=== PATIENT | male | born 1960 | race Caucasian/White ===

== ENCOUNTER 2021-05-12 04:55 | Inpatient (IN) | payer OTHER ==
[2021-05-12] MEDS ORDERED: RAPID SEQUENCE INTUBATION KIT NR ONE (05:01)
[2021-05-12] MEDS ORDERED: MIDAZOLAM HCL 2 MG/2 ML SINGLE DOSE VIAL ONE ×2 (05:06→05:21)
[2021-05-12 05:35] LABS: BASO % 0.7 % (0-2.0); EOS % 3.1 % (0-4.5); HEMATOCRIT 42.6 % (35.4-49); HEMOGLOBIN 14.4 GM/dL (11.7-16.9); LYMPH % 46.3 % (8-40); MCH 30.5 pg (25.7-33.7); MCHC 33.7 g/dl (32.0-35.9); MEAN CELL VOLUME 90.6 fl (80-96); MEAN PLT VOLUME 8.9 fl (7.5-11.1); MONO % 7.9 % (3.8-10.2); PLATELET COUNT 337 10^3/uL (134-434); WHITE BLOOD COUNT 17.4 K/mm3 (4.0-10.0)
[2021-05-12 05:49] LABS: INR 3.95 (0.83-1.09); PROTHROMBIN TIME (PATIENT) 46.9 SEC (9.7-13.0)
[2021-05-12 05:52] LABS: ACTIVATED PTT 59.6 SECONDS (25.2-36.5)
[2021-05-12 05:56] LABS: CHLORIDE 100 mmol/L (98-107); SODIUM 139 mmol/L (136-145)
[2021-05-12 05:58] LABS: ANION GAP 24 MMOL/L (8-16); BLOOD UREA NITROGEN 24.8 mg/dL (7-18); CALCIUM 9.2 mg/dL (8.5-10.1); CO2 15 mmol/L (21-32); GLUCOSE,RANDOM 382 mg/dL (74-106)
[2021-05-12 05:59] LABS: ALBUMIN 3.6 g/dl (3.4-5.0)
[2021-05-12 06:02] LABS: CREATININE 2.2 mg/dL (0.55-1.3); SGOT/AST 18 U/L (15-37); SGPT/ALT 25 U/L (13-61)
[2021-05-12 06:04] LABS: ALK PHOS 148 U/L (45-117); BILIRUBIN,TOTAL 0.4 mg/dL (0.2-1); TOT PROT 8.3 g/dl (6.4-8.2)
[2021-05-12] MEDS ORDERED: MIDAZOLAM HCL 5 MG/1 ML Single Dose Vial IVPUSH ONE ×4 (06:08→06:38)
[2021-05-12] MEDS ORDERED: ROCURONIUM BROMIDE 50 MG/5 ML VIAL IV ONE ×2 (06:08→06:37)
[2021-05-12] MEDS ORDERED: MIDAZOLAM IN 0.9 % SOD.CHLORID 1 MG/1 ML PLAST..BAG ONE (06:13)
[2021-05-12] MEDS ORDERED: MIDAZOLAM 100 MG in SODIUM CHLORIDE 100 ML IVPB SCH (06:15)
[2021-05-12] MEDS ORDERED: levETIRAcetam 500 MG/5 ML INJECTION VIAL IVPB ONE ×3 (06:42→06:49)
[2021-05-12] MEDS: MIDAZOLAM IN 0.9 % SOD.CHLORID 100 MG/100 ML PLAST..BAG IVPB SCH ×2 (06:47→10:28)
[2021-05-12 08:24] LABS: METHADONE, UR NEGATIVE (NEGATIVE); URINE AMPHETAMINES NEGATIVE (NEGATIVE)
[2021-05-12 08:25] LABS: OPIATES, URI NEGATIVE (NEGATIVE); PHENCYCLIDINE,URINE NEGATIVE (NEGATIVE)
[2021-05-12 08:31] LABS: URINE APPEARANCE CLEAR; URINE BILIRUBIN NEGATIVE (NEGATIVE); URINE COLOR YELLOW; URINE GLUCOSE (UA) 3+ (NEGATIVE); URINE KETONE NEGATIVE (NEGATIVE)
[2021-05-12 08:32] LABS: URINE LEUK ESTERASE NEGATINE (NEGATIVE); URINE NITRITE NEGATIVE (NEGATIVE); URINE PROTEIN TRACE (NEGATIVE); URINE UROBILINOGEN 0.2 mg/dL (0.2-1.0)
[2021-05-12 08:33] LABS: EPI CELLS 20.1 /uL (0-25.1); HYALINE CASTS 1.77 /uL (0-3.1); URINE BACTERIA 118.3 /uL (0-1359); URINE RBC 5.7 /uL (0-23.9); URINE WBC 10.5 /uL (0-25.8)
[2021-05-12 08:33] LABS: COCAINE, UR NEGATIVE (NEGATIVE); URINE BARBITURATES NEGATIVE (NEGATIVE); URINE BENZODIAZEPINES POSITIVE (NEGATIVE)
[2021-05-12] MEDS: LACTATED RINGERS SOLUTION 1,000 ML/1,000 ML INFUS.BAG IV SCH (14:04)
[2021-05-12] MEDS ORDERED: VANCOMYCIN 1 GRAM (PRE-DOCKED) 1,000 MG/250 ML BAG IVPB ONE (15:00)
[2021-05-12] MEDS ORDERED: DEXTROSE 5%-WATER - 50 ML IVPB ONE (17:47)
[2021-05-12] MEDS ORDERED: PIPERACILLIN/TAZOBACTAM 2.25 GM VIAL IVPB ONE (17:47)
[2021-05-12] MEDS: PIPERACILLIN/TAZOB 2.25 GM 2.25 GM in DEXTROSE 5%-WATER - 50 ML IVPB SCH ×3 (17:49→18:07)
[2021-05-12 19:02] LABS: INR 3.03 (0.83-1.09); PROTHROMBIN TIME (PATIENT) 34.3 SEC (9.7-13.0)
[2021-05-12 19:04] LABS: ACTIVATED PTT 44.1 SECONDS (25.2-36.5)
[2021-05-12] MEDS ORDERED: FENTANYL NS IVPB 500 MCG/100 ML BAG IVPB ONE (19:20)
[2021-05-12] MEDS ORDERED: FENTANYL NS IVPB 500 MCG/100 ML BAG IVPB SCH ×2 (19:30→22:15)
[2021-05-12] MEDS ORDERED: HEPARIN SOD,PORK IN 0.45% NACL 25,000 UNITS/500 ML INFUS.BAG IVPB SCH ×2 (19:45→21:15)
[2021-05-12] MEDS: levETIRAcetam 500 MG/5 ML INJECTION VIAL IVPB SCH (22:40)
[2021-05-12] MEDS: FENTANYL NS IVPB 500 MCG/100 ML BAG IVPB SCH (22:40)
[2021-05-13] MEDS: LACTATED RINGERS SOLUTION 1,000 ML/1,000 ML INFUS.BAG IV SCH ×2 (00:10→12:20)
[2021-05-13 01:41] LABS: EPI CELLS 28 /uL (0-25.1); HYALINE CASTS 3 /uL (0-3.1); URINE APPEARANCE TURBID; URINE BACTERIA 16 /uL (0-1359); URINE BILIRUBIN NEGATIVE (NEGATIVE); URINE COLOR RED; URINE GLUCOSE (UA) 3+ (NEGATIVE); URINE KETONE NEGATIVE (NEGATIVE); URINE LEUK ESTERASE 2+ (NEGATIVE); URINE NITRITE NEGATIVE (NEGATIVE); URINE PROTEIN 2+ (NEGATIVE); URINE RBC 19858 /uL (0-23.9); URINE UROBILINOGEN 0.2 mg/dL (0.2-1.0); URINE WBC 196 /uL (0-25.8)
[2021-05-13 01:54] LABS: INR 2.96 (0.83-1.09); PROTHROMBIN TIME (PATIENT) 33.5 SEC (9.7-13.0)
[2021-05-13] MEDS: PIPERACILLIN/TAZOB 2.25 GM 2.25 GM in DEXTROSE 5%-WATER - 50 ML IVPB SCH ×3 (02:55→18:07)
[2021-05-13] MEDS ORDERED: HEPARIN NA (PORCINE) 5,000 UNITS/ML 1ML VIAL IVPUSH PRN ×3 (03:02→20:26)
[2021-05-13] MEDS ORDERED: HEPARIN SOD,PORK IN 0.45% NACL 25,000 UNITS/500 ML INFUS.BAG IVPB SCH (03:15)
[2021-05-13] MEDS ORDERED: DEXTROSE 5%-WATER - 50 ML IVPB ONE ×4 (03:24→23:28)
[2021-05-13] MEDS ORDERED: PIPERACILLIN/TAZOBACTAM 2.25 GM VIAL IVPB ONE ×4 (03:24→23:27)
[2021-05-13] MEDS: FENTANYL NS IVPB 500 MCG/100 ML BAG IVPB SCH (05:39)
[2021-05-13 06:43] LABS: BASO % 0.5 % (0-2.0); EOS % 0.8 % (0-4.5); HEMOGLOBIN 12.3 GM/dL (11.7-16.9); LYMPH % 19.2 % (8-40); MCH 29.2 pg (25.7-33.7); MCHC 33.2 g/dl (32.0-35.9); MEAN PLT VOLUME 8.8 fl (7.5-11.1); MONO % 9.1 % (3.8-10.2); NEUT % 70.4 % (42.8-82.8); PLATELET COUNT 238 10^3/uL (134-434); WHITE BLOOD COUNT 10.5 K/mm3 (4.0-10.0)
[2021-05-13 06:50] LABS: INR 2.88 (0.83-1.09); PROTHROMBIN TIME (PATIENT) 32.6 SEC (9.7-13.0)
[2021-05-13 07:00] LABS: CALCIUM 8.1 mg/dL (8.5-10.1)
[2021-05-13 07:01] LABS: BLOOD UREA NITROGEN 26.6 mg/dL (7-18)
[2021-05-13 07:04] LABS: CREATININE 2.2 mg/dL (0.55-1.3); PHOSPHOROUS 3.7 mg/dL (2.5-4.9)
[2021-05-13 07:06] LABS: BILIRUBIN,TOTAL 0.5 mg/dL (0.2-1); TOT PROT 6.6 g/dl (6.4-8.2)
[2021-05-13 07:11] LABS: ALBUMIN 2.5 g/dl (3.4-5.0); MAGNESIUM 2.2 mg/dL (1.8-2.4)
[2021-05-13 07:16] LABS: ACTIVATED PTT 179.3 SECONDS (25.2-36.5)
[2021-05-13] MEDS ORDERED: MIDAZOLAM IN 0.9 % SOD.CHLORID 100 MG/100 ML PLAST..BAG IVPB SCH (09:00)
[2021-05-13] MEDS: levETIRAcetam 500 MG/5 ML INJECTION VIAL IVPB SCH ×2 (09:27→21:22)
[2021-05-13] MEDS ORDERED: ALBUTEROL SO4 2.5/IPRATROPIUM 0.5 INH SOL 3 ML VIAL.NEB. NEB PRN (09:45)
[2021-05-13] MEDS ORDERED: DEXAMETHASONE SOD PHOSPHATE 10 MG/1 ML VIAL IVPUSH ONE (09:56)
[2021-05-13] MEDS ORDERED: SUCCINYLCHOLINE CHLORIDE 200 MG/10 ML SYRINGE ONE (10:03)
[2021-05-13] MEDS ORDERED: PROPOFOL 1,000,000 MCG/100 ML VIAL ONE (10:04)
[2021-05-13] MEDS ORDERED: RACEPINEPHRINE IH SOL 2.25% 11.25 MG/0.5 ML VIAL IH ONE (10:07)
[2021-05-13] MEDS ORDERED: RACEPINEPHRINE IH SOL 2.25% 11.25 MG/0.5 ML VIAL NEB ONE (10:07)
[2021-05-13] MEDS: INSULIN SLIDING SCALE (NOVOLOG) 1 VIAL SQ SCH ×3 (12:28→21:54)
[2021-05-13] MEDS ORDERED: WARFARIN NA 3 MG TABLET PO SCH (16:00)
[2021-05-13] MEDS: WARFARIN NA 3 MG TABLET PO SCH (18:07)
[2021-05-13] MEDS: DEXAMETHASONE SOD PHOSPHATE 10 MG/1 ML VIAL IVPUSH SCH (18:07)
[2021-05-13] MEDS: LORazepam 2 MG/ML SDV VIAL IVPUSH PRN ×2 (18:34→21:09)
[2021-05-13] MEDS: HEPARIN SOD,PORK IN 0.45% NACL 25,000 UNITS/500 ML INFUS.BAG IVPB SCH (20:00)
[2021-05-13 20:38] LABS: EPI CELLS >36 /uL (0-25.1); HYALINE CASTS 2 /uL (0-3.1); URINE APPEARANCE TURBID; URINE BACTERIA 7 /uL (0-1359); URINE BILIRUBIN 1+ (NEGATIVE); URINE COLOR RED; URINE GLUCOSE (UA) 3+ (NEGATIVE); URINE KETONE NEGATIVE (NEGATIVE); URINE LEUK ESTERASE 2+ (NEGATIVE); URINE NITRITE NEGATIVE (NEGATIVE); URINE PROTEIN 2+ (NEGATIVE); URINE UROBILINOGEN 0.2 mg/dL (0.2-1.0); URINE WBC 358 /uL (0-25.8)
[2021-05-13 21:53] LABS: ARTERIAL BLD GAS O2 SATURATION 95.8 % (95-98); ARTERIAL BLOOD GAS BASE EXCESS -1.3 mmol/L (-2-2); ARTERIAL BLOOD GAS PO2 78.9 mmHg (80-100); ARTERIAL BLOOD GAS pH 7.406 (7.350-7.450)
[2021-05-13 21:55] LABS: URINE RBC 21732 /uL (0-23.9); YEAST NONE SEEN (NEGATIVE)
[2021-05-13 21:56] LABS: ALLENS TEST POSITIVE
[2021-05-13] MEDS ORDERED: METOPROLOL TARTRATE 5 MG/5 ML VIAL IVPUSH ONE (23:01)
[2021-05-13] MEDS ORDERED: HALOPERIDOL LACTATE 5 MG/ML IM ONE (23:05)
[2021-05-14] MEDS ORDERED: LABETALOL HCL 5 MG/1 ML (100MG/20 ML VIAL) IVPUSH ONE ×2 (00:35→06:58)
[2021-05-14] MEDS ORDERED: LABETALOL HCL 5 MG/1 ML (100MG/20 ML VIAL) ONE (00:36)
[2021-05-14] MEDS ORDERED: hydrALAZINE HCL 20 MG/ML VIAL IVPUSH ONE (01:41)
[2021-05-14] MEDS: PIPERACILLIN/TAZOB 2.25 GM 2.25 GM in DEXTROSE 5%-WATER - 50 ML IVPB SCH ×3 (01:45→18:12)
[2021-05-14] MEDS: DEXAMETHASONE SOD PHOSPHATE 10 MG/1 ML VIAL IVPUSH SCH (02:18)
[2021-05-14] MEDS: HEPARIN SOD,PORK IN 0.45% NACL 25,000 UNITS/500 ML INFUS.BAG IVPB SCH ×2 (03:50→20:31)
[2021-05-14] MEDS: INSULIN SLIDING SCALE (NOVOLOG) 1 VIAL SQ SCH ×5 (06:48→21:33)
[2021-05-14 07:06] LABS: HEMATOCRIT 38.5 % (35.4-49); HEMOGLOBIN 12.9 GM/dL (11.7-16.9); MCH 29.5 pg (25.7-33.7); MCHC 33.6 g/dl (32.0-35.9); MEAN CELL VOLUME 87.7 fl (80-96); MEAN PLT VOLUME 9.5 fl (7.5-11.1); PLATELET COUNT 257 10^3/uL (134-434); RBC 4.39 M/mm3 (4.00-5.60); RDW 13.1 % (11.9-15.9); WHITE BLOOD COUNT 18.2 K/mm3 (4.0-10.0)
[2021-05-14 07:16] LABS: INR 1.96 (0.83-1.09); PROTHROMBIN TIME (PATIENT) 23.1 SEC (9.7-13.0)
[2021-05-14 07:19] LABS: ACTIVATED PTT 34.1 SECONDS (25.2-36.5)
[2021-05-14 07:34] LABS: BLOOD UREA NITROGEN 31.4 mg/dL (7-18); CALCIUM 8.6 mg/dL (8.5-10.1)
[2021-05-14 07:35] LABS: MAGNESIUM 1.7 mg/dL (1.8-2.4)
[2021-05-14 07:38] LABS: CREATININE 2.1 mg/dL (0.55-1.3); PHOSPHOROUS 2.8 mg/dL (2.5-4.9)
[2021-05-14 07:39] LABS: BILIRUBIN,TOTAL 0.5 mg/dL (0.2-1); TOT PROT 7.6 g/dl (6.4-8.2)
[2021-05-14] MEDS ORDERED: MAGNESIUM SULF 50% (8.12 MEQ/2 ML-1 GM VIAL) IVPB ONE (08:30)
[2021-05-14] MEDS ORDERED: DEXTROSE 5%-WATER - 50 ML IVPB ONE ×2 (09:03→18:36)
[2021-05-14] MEDS ORDERED: PIPERACILLIN/TAZOBACTAM 2.25 GM VIAL IVPB ONE ×2 (09:03→18:36)
[2021-05-14] MEDS: levETIRAcetam 500 MG/5 ML INJECTION VIAL IVPB SCH ×2 (10:11→21:32)
[2021-05-14] MEDS: HEPARIN NA (PORCINE) 5,000 UNITS/ML 1ML VIAL IVPUSH PRN ×2 (10:12→21:51)
[2021-05-14] MEDS: LACTATED RINGERS SOLUTION 1,000 ML/1,000 ML INFUS.BAG IV SCH ×2 (10:12→16:23)
[2021-05-14 10:24] LABS: ANISOCYTOSIS 1+; MACROCYTOSIS 0; OVALOCYTE 1+; PLATELET ESTIMATE NORMAL
[2021-05-14 15:02] VITALS: BMI 30.2
[2021-05-14] MEDS: NICARDIPINE 25 MG in DEXTROSE 5%-WATER - 240 ML IVPB SCH (17:30)
[2021-05-14] MEDS: WARFARIN NA 3 MG TABLET PO SCH (18:11)
[2021-05-15] MEDS: NICARDIPINE 25 MG in DEXTROSE 5%-WATER - 240 ML IVPB SCH (00:38)
[2021-05-15] MEDS ORDERED: PIPERACILLIN/TAZOBACTAM 2.25 GM VIAL IVPB ONE ×2 (01:10→09:51)
[2021-05-15] MEDS ORDERED: DEXTROSE 5%-WATER - 50 ML IVPB ONE ×2 (01:10→09:52)
[2021-05-15] MEDS: PIPERACILLIN/TAZOB 2.25 GM 2.25 GM in DEXTROSE 5%-WATER - 50 ML IVPB SCH ×3 (01:13→19:11)
[2021-05-15] MEDS: LACTATED RINGERS SOLUTION 1,000 ML/1,000 ML INFUS.BAG IV SCH ×2 (01:16→19:11)
[2021-05-15] MEDS ORDERED: HALOPERIDOL LACTATE 5 MG/ML IM ONE (03:05)
[2021-05-15] MEDS ORDERED: morphine SULFATE 4 MG/ML VIAL IVPUSH ONE (04:01)
[2021-05-15] MEDS: INSULIN SLIDING SCALE (NOVOLOG) 1 VIAL SQ SCH ×4 (06:43→21:10)
[2021-05-15 07:37] LABS: BASO % 0.1 % (0-2.0); HEMATOCRIT 38.2 % (35.4-49); HEMOGLOBIN 12.8 GM/dL (11.7-16.9); LYMPH % 10.9 % (8-40); MCH 29.1 pg (25.7-33.7); MCHC 33.5 g/dl (32.0-35.9); MEAN CELL VOLUME 86.8 fl (80-96); MEAN PLT VOLUME 8.8 fl (7.5-11.1); MONO % 6.2 % (3.8-10.2); NEUT % 82.8 % (42.8-82.8); PLATELET COUNT 300 10^3/uL (134-434); RDW 12.9 % (11.9-15.9); WHITE BLOOD COUNT 18.9 K/mm3 (4.0-10.0)
[2021-05-15 07:46] LABS: INR 1.68 (0.83-1.09); PROTHROMBIN TIME (PATIENT) 18.9 SEC (9.7-13.0)
[2021-05-15 07:49] LABS: ACTIVATED PTT 28.2 SECONDS (25.2-36.5)
[2021-05-15 08:08] LABS: ALBUMIN 2.9 g/dl (3.4-5.0); CALCIUM 8.6 mg/dL (8.5-10.1)
[2021-05-15 08:09] LABS: BLOOD UREA NITROGEN 30.9 mg/dL (7-18)
[2021-05-15 08:11] LABS: CREATININE 1.6 mg/dL (0.55-1.3)
[2021-05-15 08:12] LABS: BILIRUBIN,TOTAL 0.6 mg/dL (0.2-1); PHOSPHOROUS 2.7 mg/dL (2.5-4.9)
[2021-05-15 08:13] LABS: TOT PROT 7.3 g/dl (6.4-8.2)
[2021-05-15] MEDS: levETIRAcetam 500 MG/5 ML INJECTION VIAL IVPB SCH (14:00)
[2021-05-15] MEDS: ASPIRIN COATED 81 MG TABLET.EC PO SCH (14:38)
[2021-05-15] MEDS: NIFEdipine E.R. 30 MG TABLET PO SCH (14:38)
[2021-05-15] MEDS ORDERED: PT OWN MED DRAWER 7, Y5N ONE (18:35)
[2021-05-15] MEDS: WARFARIN NA 3 MG TABLET PO SCH (18:49)
[2021-05-15] MEDS: HEPARIN SOD,PORK IN 0.45% NACL 25,000 UNITS/500 ML INFUS.BAG IVPB SCH (21:00)
[2021-05-15] MEDS: levETIRAcetam 500 MG TABLET (FP) PO SCH (21:10)
[2021-05-16] MEDS: PIPERACILLIN/TAZOB 2.25 GM 2.25 GM in DEXTROSE 5%-WATER - 50 ML IVPB SCH ×2 (01:31→09:47)
[2021-05-16] MEDS: INSULIN SLIDING SCALE (NOVOLOG) 1 VIAL SQ SCH ×4 (06:46→21:05)
[2021-05-16] MEDS ORDERED: PIPERACILLIN/TAZOBACTAM 2.25 GM VIAL IVPB ONE (09:07)
[2021-05-16] MEDS ORDERED: DEXTROSE 5%-WATER - 50 ML IVPB ONE (09:08)
[2021-05-16] MEDS: ASPIRIN COATED 81 MG TABLET.EC PO SCH (09:30)
[2021-05-16] MEDS: levETIRAcetam 500 MG TABLET (FP) PO SCH ×2 (09:30→21:04)
[2021-05-16] MEDS: NIFEdipine E.R. 30 MG TABLET PO SCH (09:30)
[2021-05-16] MEDS: LACTATED RINGERS SOLUTION 1,000 ML/1,000 ML INFUS.BAG IV SCH (11:26)
[2021-05-16 11:59] LABS: HEMATOCRIT 40.7 % (35.4-49); HEMOGLOBIN 13.7 GM/dL (11.7-16.9); MCH 29.4 pg (25.7-33.7); MCHC 33.6 g/dl (32.0-35.9); MEAN CELL VOLUME 87.4 fl (80-96); MEAN PLT VOLUME 8.3 fl (7.5-11.1); PLATELET COUNT 237 10^3/uL (134-434); RBC 4.65 M/mm3 (4.00-5.60); RDW 12.7 % (11.9-15.9); WHITE BLOOD COUNT 12.3 K/mm3 (4.0-10.0)
[2021-05-16 12:01] LABS: BASO % 0.5 % (0-2.0); EOS % 1.1 % (0-4.5); HEMATOCRIT 40.5 % (35.4-49); HEMOGLOBIN 13.8 GM/dL (11.7-16.9); LYMPH % 24.1 % (8-40); MCH 29.5 pg (25.7-33.7); MEAN CELL VOLUME 86.7 fl (80-96); MEAN PLT VOLUME 8.6 fl (7.5-11.1); MONO % 7.1 % (3.8-10.2); NEUT % 67.2 % (42.8-82.8); PLATELET COUNT 286 10^3/uL (134-434); RBC 4.67 M/mm3 (4.00-5.60)
[2021-05-16 12:08] LABS: INR 1.82 (0.83-1.09); PROTHROMBIN TIME (PATIENT) 20.5 SEC (9.7-13.0)
[2021-05-16 12:12] LABS: ACTIVATED PTT 29.6 SECONDS (25.2-36.5)
[2021-05-16 12:19] LABS: ALBUMIN 2.9 g/dl (3.4-5.0); BLOOD UREA NITROGEN 33.1 mg/dL (7-18); CALCIUM 8.8 mg/dL (8.5-10.1); MAGNESIUM 2.1 mg/dL (1.8-2.4)
[2021-05-16 12:22] LABS: CREATININE 1.6 mg/dL (0.55-1.3)
[2021-05-16 12:24] LABS: BILIRUBIN,TOTAL 0.6 mg/dL (0.2-1); TOT PROT 7.4 g/dl (6.4-8.2)
[2021-05-16] MEDS: AMOX TR/POT CLAV 875MG/125MG TABLETS (FP) PO SCH (17:20)
[2021-05-16] MEDS ORDERED: WARFARIN NA 5 MG TABLET PO SCH ×2 (18:00→20:00)
[2021-05-16] MEDS ORDERED: HEPARIN NA (PORCINE) 5,000 UNITS/ML 1ML VIAL IVPUSH PRN ×2 (18:26)
[2021-05-16] MEDS ORDERED: HEPARIN SOD,PORK IN 0.45% NACL 25,000 UNITS/500 ML INFUS.BAG IVPB SCH (18:26)
[2021-05-16] MEDS ORDERED: ALBUTEROL SO4 2.5/IPRATROPIUM 0.5 INH SOL 3 ML VIAL.NEB. NEB PRN (18:26)
[2021-05-16] MEDS ORDERED: WARFARIN NA 3 MG TABLET PO SCH (18:30)
[2021-05-16] MEDS: WARFARIN NA 3 MG TABLET PO SCH (18:40)
[2021-05-16] MEDS ORDERED: INSULIN (NOVOLOG) ASPART 100 UNITS/ML 10ML VIAL ONE (20:27)
[2021-05-16] MEDS: ENOXAPARIN NA (PORCINE) 100 MG/1 ML DISP.SYRIN SQ SCH (21:04)
[2021-05-16] MEDS ORDERED: ENOXAPARIN NA (PORCINE) 100 MG/1 ML DISP.SYRIN SQ SCH (22:00)
[2021-05-17] MEDS: INSULIN SLIDING SCALE (NOVOLOG) 1 VIAL SQ SCH ×4 (06:43→21:00)
[2021-05-17] MEDS: AMOX TR/POT CLAV 875MG/125MG TABLETS (FP) PO SCH ×2 (09:28→17:26)
[2021-05-17] MEDS: levETIRAcetam 500 MG TABLET (FP) PO SCH ×2 (09:28→21:00)
[2021-05-17] MEDS: NIFEdipine E.R. 30 MG TABLET PO SCH (09:28)
[2021-05-17] MEDS: ASPIRIN COATED 81 MG TABLET.EC PO SCH (09:28)
[2021-05-17] MEDS: ENOXAPARIN NA (PORCINE) 100 MG/1 ML DISP.SYRIN SQ SCH (09:29)
[2021-05-17] MEDS: METOPROLOL TARTRATE 25 MG TABLET (FP) PO SCH (09:29)
[2021-05-17] MEDS ORDERED: INSULIN (NOVOLOG) ASPART 100 UNITS/ML 10ML VIAL ONE (11:39)
[2021-05-17 12:46] LABS: HEMATOCRIT 39.7 % (35.4-49); HEMOGLOBIN 13.6 GM/dL (11.7-16.9); MCH 29.7 pg (25.7-33.7); MCHC 34.2 g/dl (32.0-35.9); PLATELET COUNT 324 10^3/uL (134-434); RBC 4.56 M/mm3 (4.00-5.60); RDW 12.9 % (11.9-15.9)
[2021-05-17 12:56] LABS: INR 2.56 (0.83-1.09); PROTHROMBIN TIME (PATIENT) 30.2 SEC (9.7-13.0)
[2021-05-17] MEDS ORDERED: WARFARIN NA 3 MG TABLET PO SCH (18:00)
[2021-05-18] MEDS: INSULIN SLIDING SCALE (NOVOLOG) 1 VIAL SQ SCH ×2 (06:18→11:48)
[2021-05-18] MEDS: AMOX TR/POT CLAV 875MG/125MG TABLETS (FP) PO SCH (07:03)
[2021-05-18 08:16] LABS: BASO % 0.8 % (0-2.0); EOS % 3.3 % (0-4.5); HEMATOCRIT 39.5 % (35.4-49); HEMOGLOBIN 13.4 GM/dL (11.7-16.9); LYMPH % 27.2 % (8-40); MCH 29.4 pg (25.7-33.7); MEAN CELL VOLUME 86.2 fl (80-96); MEAN PLT VOLUME 8.5 fl (7.5-11.1); MONO % 7.4 % (3.8-10.2); NEUT % 61.3 % (42.8-82.8); PLATELET COUNT 308 10^3/uL (134-434); RBC 4.58 M/mm3 (4.00-5.60); RDW 12.9 % (11.9-15.9); WHITE BLOOD COUNT 10.4 K/mm3 (4.0-10.0)
[2021-05-18] MEDS ORDERED: PT OWN MED DRAWER 7, Y5N ONE (08:34)
[2021-05-18 08:47] LABS: CALCIUM 9.5 mg/dL (8.5-10.1)
[2021-05-18 08:48] LABS: ALBUMIN 2.7 g/dl (3.4-5.0); BLOOD UREA NITROGEN 32.5 mg/dL (7-18); MAGNESIUM 1.7 mg/dL (1.8-2.4)
[2021-05-18 08:51] LABS: BILIRUBIN,TOTAL 0.6 mg/dL (0.2-1); CREATININE 1.5 mg/dL (0.55-1.3); TOT PROT 7.1 g/dl (6.4-8.2)
[2021-05-18] MEDS: METOPROLOL TARTRATE 25 MG TABLET (FP) PO SCH (09:04)
[2021-05-18] MEDS: ASPIRIN COATED 81 MG TABLET.EC PO SCH (09:05)
[2021-05-18] MEDS: NIFEdipine E.R. 30 MG TABLET PO SCH (09:05)
[2021-05-18] MEDS: levETIRAcetam 500 MG TABLET (FP) PO SCH (09:05)
[2021-05-18] MEDS ORDERED: MAGNESIUM OXIDE 400 MG TABLET (FP) PO ONE (11:15)
[2021-05-18 11:52] LABS: INR 3.02 (0.83-1.09); PROTHROMBIN TIME (PATIENT) 34.2 SEC (9.7-13.0)
[2021-05-18 15:31] VITALS: BP 136/92; PULSE 73; TEMP 98.2
== END 2021-05-18 15:38 | disposition home or self-care (01) | DRG 53 ==
LOC: JER 04:55 → JERBED 05:49 → JICU 10:16 → J8W 05-16 18:07
PROVIDERS: ADMIT Internal Medicine Pulmonary Disease; ATTEND Nurse Practitioner Acute Care
PROC: 0BH17EZ Insertion of Endotracheal Airway into Trachea, Via Natural or Artificial Opening (ICD-10-PCS; principal; 2021-05-12)
PROC: 5A1945Z Respiratory Ventilation, 24-96 Consecutive Hours (ICD-10-PCS; 2021-05-12)
DX: G40.909 Epilepsy, unspecified, not intractable, without status epilepticus (principal); J96.00 Acute respiratory failure, unspecified whether with hypoxia or hypercapnia; J69.0 Pneumonitis due to inhalation of food and vomit; I10 Essential (primary) hypertension; E11.9 Type 2 diabetes mellitus without complications; I25.10 Atherosclerotic heart disease of native coronary artery without angina pectoris; E11.65 Type 2 diabetes mellitus with hyperglycemia; K74.60 Unspecified cirrhosis of liver; D72.829 Elevated white blood cell count, unspecified; R31.0 Gross hematuria; E11.40 Type 2 diabetes mellitus with diabetic neuropathy, unspecified; Z95.2 Presence of prosthetic heart valve; N17.9 Acute kidney failure, unspecified; N20.0 Calculus of kidney; R31.9 Hematuria, unspecified; J98.11 Atelectasis; R41.82 Altered mental status, unspecified; W06.XXXA Fall from bed, initial encounter; Y92.230 Patient room in hospital as the place of occurrence of the external cause; Z86.19 Personal history of other infectious and parasitic diseases
CPT/HCPCS: 36415; 36600; 70450-TC; 71045-TC-FY; 71260-TC; 72125-TC; 74177-TC; 76775-TC; 80053; 80307; 81003; 82010; 82140; 82550; 82553; 82803; 82962; 83605; 83735; 84100; 84484; 85025; 85027; 85610; 85730; 86038; 86160; 86850; 86870; 86900; 86901; 86902; 87040; 87086; 87522; 93005; 93010; 93306-TC; 94002; 94660; 97116-GP; 99291; 99292; C9803; G0480; J1100; J1644; U0003; U0005

== ENCOUNTER 2021-06-12 10:26 | Observation (INO) | payer OTHER ==
[2021-06-12 10:43] VITALS: BMI 32.1
[2021-06-12 14:09] LABS: VENOUS BASE EXCESS -1.5 mmol/L (-2-2); VENOUS O2 SATURATION 62.3 % (70-80); VENOUS PCO2 45.2 mmHg (38-52); VENOUS PH 7.348 (7.310-7.410)
[2021-06-12 14:11] LABS: BASO % 1.2 % (0-2.0); HEMATOCRIT 35.8 % (35.4-49); HEMOGLOBIN 12.2 GM/dL (11.7-16.9); LYMPH % 33.6 % (8-40); MCH 29.3 pg (25.7-33.7); MCHC 34.2 g/dl (32.0-35.9); MEAN CELL VOLUME 85.9 fl (80-96); MEAN PLT VOLUME 9.4 fl (7.5-11.1); MONO % 7.6 % (3.8-10.2); NEUT % 54.6 % (42.8-82.8); PLATELET COUNT 251 10^3/uL (134-434); RBC 4.17 M/mm3 (4.00-5.60); WHITE BLOOD COUNT 8.4 K/mm3 (4.0-10.0)
[2021-06-12 14:19] LABS: PROTHROMBIN TIME (PATIENT) 50.9 SEC (9.7-13.0)
[2021-06-12 14:28] LABS: CHLORIDE 97 mmol/L (98-107); SODIUM 131 mmol/L (136-145)
[2021-06-12 14:30] LABS: CALCIUM 9.1 mg/dL (8.5-10.1)
[2021-06-12 14:31] LABS: ALBUMIN 3.7 g/dl (3.4-5.0); ANION GAP 7 MMOL/L (8-16); BLOOD UREA NITROGEN 32.2 mg/dL (7-18); CO2 28 mmol/L (21-32); INR 4.48 (0.83-1.09)
[2021-06-12 14:33] LABS: CREATININE 2.4 mg/dL (0.55-1.3)
[2021-06-12 14:34] LABS: SGOT/AST 13 U/L (15-37); SGPT/ALT 24 U/L (13-61)
[2021-06-12 14:35] LABS: BILIRUBIN,TOTAL 0.3 mg/dL (0.2-1); TOT PROT 7.5 g/dl (6.4-8.2)
[2021-06-12 14:36] LABS: ALK PHOS 140 U/L (45-117)
[2021-06-12 14:50] LABS: GLUCOSE,RANDOM 516 mg/dL (74-106)
[2021-06-12] MEDS ORDERED: SODIUM CHLORIDE 1,000 ML IV ONE (16:09)
[2021-06-12] MEDS: INSULIN SLIDING SCALE (NOVOLOG) 1 VIAL SQ SCH ×2 (17:00→21:27)
[2021-06-12] MEDS: SODIUM CHLORIDE 1,000 ML IV SCH (18:13)
[2021-06-12 18:17] LABS: EPI CELLS 6 /uL (0-25.1); HYALINE CASTS 0 /uL (0-3.1); URINE APPEARANCE CLEAR; URINE BACTERIA 123 /uL (0-1359); URINE BILIRUBIN NEGATIVE (NEGATIVE); URINE COLOR YELLOW; URINE GLUCOSE (UA) 3+ (NEGATIVE); URINE KETONE NEGATIVE (NEGATIVE); URINE LEUK ESTERASE TRACE (NEGATIVE); URINE NITRITE NEGATIVE (NEGATIVE); URINE PROTEIN 1+ (NEGATIVE); URINE RBC 8 /uL (0-23.9); URINE UROBILINOGEN 0.2 mg/dL (0.2-1.0); URINE WBC 89 /uL (0-25.8)
[2021-06-12] MEDS: levETIRAcetam 500 MG TABLET (FP) PO SCH (21:27)
[2021-06-12] MEDS: ATORVASTATIN CA 40 MG TABLET (FP) PO SCH (21:27)
[2021-06-12] MEDS: INSULIN (LEVEMIR) 100 UNITS/ML UNITS SQ SCH (21:27)
[2021-06-13] MEDS: INSULIN SLIDING SCALE (NOVOLOG) 1 VIAL SQ SCH ×4 (06:05→21:19)
[2021-06-13] MEDS: SODIUM CHLORIDE 1,000 ML IV SCH ×2 (06:51→18:36)
[2021-06-13] MEDS: INSULIN (LEVEMIR) 100 UNITS/ML UNITS SQ SCH (09:10)
[2021-06-13] MEDS: METOPROLOL TARTRATE 25 MG TABLET (FP) PO SCH (09:10)
[2021-06-13] MEDS: NIFEdipine E.R. 30 MG TABLET PO SCH (09:10)
[2021-06-13] MEDS: levETIRAcetam 500 MG TABLET (FP) PO SCH ×2 (09:10→21:20)
[2021-06-13 10:48] LABS: HEMATOCRIT 32.2 % (35.4-49); HEMOGLOBIN 11.4 GM/dL (11.7-16.9); MCH 30.1 pg (25.7-33.7); MCHC 35.4 g/dl (32.0-35.9); MEAN CELL VOLUME 85.1 fl (80-96); MEAN PLT VOLUME 9.1 fl (7.5-11.1); PLATELET COUNT 217 10^3/uL (134-434); RBC 3.78 M/mm3 (4.00-5.60); WHITE BLOOD COUNT 6.9 K/mm3 (4.0-10.0)
[2021-06-13 10:53] LABS: INR 3.26 (0.83-1.09); PROTHROMBIN TIME (PATIENT) 38.6 SEC (9.7-13.0)
[2021-06-13 11:15] LABS: BLOOD UREA NITROGEN 29.2 mg/dL (7-18); CALCIUM 8.3 mg/dL (8.5-10.1)
[2021-06-13 11:16] LABS: MAGNESIUM 1.9 mg/dL (1.8-2.4)
[2021-06-13 11:19] LABS: CREATININE 1.7 mg/dL (0.55-1.3); PHOSPHOROUS 2.4 mg/dL (2.5-4.9)
[2021-06-13] MEDS ORDERED: WARFARIN NA 2.5 MG TABLET PO ONE (18:00)
[2021-06-13] MEDS: ATORVASTATIN CA 40 MG TABLET (FP) PO SCH (21:19)
[2021-06-14] MEDS: INSULIN SLIDING SCALE (NOVOLOG) 1 VIAL SQ SCH ×4 (06:39→21:20)
[2021-06-14] MEDS: INSULIN (LEVEMIR) 100 UNITS/ML UNITS SQ SCH (06:39)
[2021-06-14] MEDS: SODIUM CHLORIDE 1,000 ML IV SCH ×2 (08:56→18:44)
[2021-06-14] MEDS: NIFEdipine E.R. 30 MG TABLET PO SCH (09:03)
[2021-06-14] MEDS: levETIRAcetam 500 MG TABLET (FP) PO SCH ×2 (09:03→21:21)
[2021-06-14] MEDS: METOPROLOL TARTRATE 25 MG TABLET (FP) PO SCH (09:03)
[2021-06-14 09:48] LABS: INR 2.7 (0.83-1.09); PROTHROMBIN TIME (PATIENT) 30.5 SEC (9.7-13.0)
[2021-06-14 10:18] LABS: BLOOD UREA NITROGEN 24.8 mg/dL (7-18); CALCIUM 8.4 mg/dL (8.5-10.1)
[2021-06-14 10:22] LABS: CREATININE 1.4 mg/dL (0.55-1.3)
[2021-06-14 10:23] LABS: BILIRUBIN,TOTAL 0.6 mg/dL (0.2-1); TOT PROT 6.3 g/dl (6.4-8.2)
[2021-06-14 10:26] LABS: ALBUMIN 2.9 g/dl (3.4-5.0)
[2021-06-14] MEDS ORDERED: NIFEdipine E.R. 30 MG TABLET PO ONE (10:32)
[2021-06-14] MEDS ORDERED: INSULIN (LEVEMIR) 100 UNITS/ML UNITS SQ SCH (11:15)
[2021-06-14] MEDS ORDERED: WARFARIN NA 3 MG TABLET PO SCH (18:00)
[2021-06-14] MEDS ORDERED: WARFARIN NA 2.5 MG TABLET PO SCH (18:00)
[2021-06-14] MEDS ORDERED: INSULIN (NOVOLOG) ASPART 100 UNITS/ML 10ML VIAL SQ ONE (18:24)
[2021-06-14] MEDS: ATORVASTATIN CA 40 MG TABLET (FP) PO SCH (21:20)
[2021-06-15] MEDS: INSULIN (LEVEMIR) 100 UNITS/ML UNITS SQ SCH (06:21)
[2021-06-15] MEDS: INSULIN SLIDING SCALE (NOVOLOG) 1 VIAL SQ SCH ×3 (06:22→18:24)
[2021-06-15 08:47] LABS: BASO % 1.1 % (0-2.0); EOS % 3.3 % (0-4.5); HEMATOCRIT 34.1 % (35.4-49); HEMOGLOBIN 11.6 GM/dL (11.7-16.9); MCH 29.2 pg (25.7-33.7); MCHC 34.1 g/dl (32.0-35.9); MEAN CELL VOLUME 85.8 fl (80-96); MEAN PLT VOLUME 9.1 fl (7.5-11.1); MONO % 5.6 % (3.8-10.2); PLATELET COUNT 230 10^3/uL (134-434); RBC 3.97 M/mm3 (4.00-5.60); RDW 13.3 % (11.9-15.9); WHITE BLOOD COUNT 6.6 K/mm3 (4.0-10.0)
[2021-06-15 09:03] LABS: ALBUMIN 3.2 g/dl (3.4-5.0); BLOOD UREA NITROGEN 19.6 mg/dL (7-18); CALCIUM 8.9 mg/dL (8.5-10.1); MAGNESIUM 1.9 mg/dL (1.8-2.4)
[2021-06-15 09:05] LABS: CREATININE 1.2 mg/dL (0.55-1.3)
[2021-06-15 09:07] LABS: PHOSPHOROUS 2.6 mg/dL (2.5-4.9)
[2021-06-15 09:08] LABS: BILIRUBIN,TOTAL 0.3 mg/dL (0.2-1); TOT PROT 6.7 g/dl (6.4-8.2)
[2021-06-15 09:14] LABS: INR 2.26 (0.83-1.09); PROTHROMBIN TIME (PATIENT) 26.7 SEC (9.7-13.0)
[2021-06-15] MEDS ORDERED: INSULIN (LEVEMIR) 100 UNITS/ML UNITS SQ SCH (10:04)
[2021-06-15] MEDS ORDERED: INSULIN (LEVEMIR) 100 UNITS/ML UNITS SQ ONE (10:15)
[2021-06-15] MEDS: levETIRAcetam 500 MG TABLET (FP) PO SCH (10:39)
[2021-06-15] MEDS: NIFEdipine E.R. 30 MG TABLET PO SCH (10:39)
[2021-06-15] MEDS: METOPROLOL TARTRATE 25 MG TABLET (FP) PO SCH (10:39)
[2021-06-15 18:03] VITALS: BP 142/88; PULSE 104; TEMP 98.9
== END 2021-06-15 18:54 | disposition home health service (06) ==
LOC: JER 10:26 → JERBED 16:02 → INTOOBSV 16:02 → UNDOADMOB 16:02 → JERBED 21:07 → J5S 21:07 → JERBED 06-15 11:17 → J5S 06-15 11:17
PROVIDERS: ADMIT Internal Medicine; ATTEND Internal Medicine
PROC: 3E013VG Introduction of Insulin into Subcutaneous Tissue, Percutaneous Approach (ICD-10-PCS; principal; 2021-06-15)
PROC: 3E0337Z Introduction of Electrolytic and Water Balance Substance into Peripheral Vein, Percutaneous Approach (ICD-10-PCS; 2021-06-15)
DX: I25.10 Atherosclerotic heart disease of native coronary artery without angina pectoris (principal); I11.9 Hypertensive heart disease without heart failure; Z95.2 Presence of prosthetic heart valve; Z79.01 Long term (current) use of anticoagulants; R79.89 Other specified abnormal findings of blood chemistry; E11.65 Type 2 diabetes mellitus with hyperglycemia; E11.22 Type 2 diabetes mellitus with diabetic chronic kidney disease; N18.9 Chronic kidney disease, unspecified; E66.9 Obesity, unspecified; Z68.32 Body mass index [BMI] 32.0-32.9, adult; N17.9 Acute kidney failure, unspecified
CPT/HCPCS: 36415; 71046-TC-FY; 76775-TC; 80048; 80053; 81003; 82570; 82803; 82962; 83036; 83735; 84100; 84156; 84300; 85025; 85027; 85610; 87077; 87086; 93005; 93010; 96360; 96361; 96372; 99285-25; C9803; G0378; U0003; U0005

== ENCOUNTER 2023-01-27 12:35 | Inpatient (IN) | payer OTHER ==
[2023-01-27] MEDS ORDERED: ACETAMINOPHEN 325 MG TABLET (FP) PO PRN (17:05)
[2023-01-27 19:03] LABS: HEMATOCRIT 30.4 % (35.4-49); MCH 26.1 pg (25.7-33.7); MEAN CELL VOLUME 79.3 fl (80-96); MEAN PLT VOLUME 7.6 fl (7.5-11.1); PLATELET COUNT 317 10^3/uL (134-434); RBC 3.83 M/mm3 (4.00-5.60); RDW 14.9 % (11.9-15.9); RETICULOCYTES 1.75 % (0.5-1.5); WHITE BLOOD COUNT 10.9 K/mm3 (4.0-10.0)
[2023-01-27] MEDS ORDERED: IRON SUCROSE INJECTION 300 MG in SODIUM CHLORIDE 235 ML IVPB ONE (20:30)
[2023-01-27 20:32] LABS: COCAINE, UR NEGATIVE (NEGATIVE)
[2023-01-27 20:33] LABS: METHADONE, UR NEGATIVE (NEGATIVE); PHENCYCLIDINE,URINE NEGATIVE (NEGATIVE); URINE BARBITURATES NEGATIVE (NEGATIVE)
[2023-01-27 21:14] LABS: OPIATES, URI NEGATIVE (NEGATIVE); URINE AMPHETAMINES NEGATIVE (NEGATIVE); URINE BENZODIAZEPINES NEGATIVE (NEGATIVE)
[2023-01-27 21:29] LABS: INR 3.97 (0.83-1.09); PROTHROMBIN TIME (PATIENT) 45.4 SEC (9.7-13.0)
[2023-01-28 00:16] VITALS: BMI 32.2
[2023-01-28] MEDS: ATORVASTATIN CA 20 MG TABLET (FP) PO SCH ×2 (00:19→22:16)
[2023-01-28] MEDS: INSULIN SLIDING SCALE (NOVOLOG) 1 VIAL SQ SCH ×5 (00:19→22:16)
[2023-01-28] MEDS: OXcarbazepine 150 MG TABLET (UD) PO SCH ×3 (00:19→22:16)
[2023-01-28] MEDS: INSULIN (LEVEMIR) 100 UNITS/ML UNITS SQ SCH ×2 (00:20→22:16)
[2023-01-28] MEDS: INSULIN (NOVOLOG) ASPART 100 UNITS/ML 10ML VIAL SQ SCH ×3 (06:38→16:53)
[2023-01-28] MEDS: TAMSULOSIN HCL 0.4 MG CAP PO SCH (08:53)
[2023-01-28] MEDS: CITALOPRAM HYDROBROMIDE 20 MG TABLET PO SCH (10:14)
[2023-01-28] MEDS: NIFEdipine E.R. 30 MG TABLET PO SCH (10:14)
[2023-01-28] MEDS: METOPROLOL TARTRATE 25 MG TABLET (FP) PO SCH (10:14)
[2023-01-28] MEDS: LOSARTAN POTASSIUM 50 MG TABLET PO SCH (10:14)
[2023-01-28 12:37] LABS: HEMATOCRIT 24.8 % (35.4-49); HEMOGLOBIN 7.2 GM/dL (11.7-16.9); MEAN CELL VOLUME 59.6 fl (80-96); MEAN PLT VOLUME 8.6 fl (7.5-11.1); PLATELET COUNT 405 10^3/uL (134-434); RBC 4.17 M/mm3 (4.00-5.60); RDW 23.5 % (11.9-15.9); WHITE BLOOD COUNT 8.9 K/mm3 (4.0-10.0)
[2023-01-28 12:38] LABS: MCH 17.3 pg (25.7-33.7)
[2023-01-28 12:45] LABS: INR 3.07 (0.83-1.09); PROTHROMBIN TIME (PATIENT) 35.2 SEC (9.7-13.0)
[2023-01-28 13:01] LABS: POTASSIUM 4.6 mmol/L (3.5-5.1)
[2023-01-28 13:02] LABS: CALCIUM 8.6 mg/dL (8.5-10.1)
[2023-01-28 13:03] LABS: ALBUMIN 3.4 g/dl (3.4-5.0); BLOOD UREA NITROGEN 19.4 mg/dL (7-18)
[2023-01-28 13:06] LABS: CREATININE 1.5 mg/dL (0.55-1.3)
[2023-01-28 13:08] LABS: BILIRUBIN,TOTAL 0.4 mg/dL (0.2-1); TOT PROT 6.9 g/dl (6.4-8.2)
[2023-01-28 15:49] LABS: BASO % 1.9 % (0-2.0); EOS % 4.3 % (0-4.5); HEMATOCRIT 23.8 % (35.4-49); HEMOGLOBIN 7.1 GM/dL (11.7-16.9); LYMPH % 20.5 % (8-40); MCH 17.6 pg (25.7-33.7); MCHC 29.7 g/dl (32.0-35.9); MEAN CELL VOLUME 59.2 fl (80-96); MEAN PLT VOLUME 8.2 fl (7.5-11.1); MONO % 11.7 % (3.8-10.2); NEUT % 61.6 % (42.8-82.8); PLATELET COUNT 380 10^3/uL (134-434); RBC 4.02 M/mm3 (4.00-5.60); RDW 23.6 % (11.9-15.9)
[2023-01-28] MEDS ORDERED: IRON SUCROSE INJECTION 100 MG in SODIUM CHLORIDE 95 ML IVPB ONE (16:00)
[2023-01-28 16:23] LABS: ANISOCYTOSIS 3+; MACROCYTOSIS 0; OVALOCYTE 1+; TARGET CELLS 1+; TEAR DROP CELLS 1+
[2023-01-28] MEDS: WARFARIN NA 3 MG TABLET PO SCH (17:14)
[2023-01-28] MEDS ORDERED: INSULIN (NOVOLOG) ASPART 100 UNITS/ML 10ML VIAL ONE (21:02)
[2023-01-29] MEDS: INSULIN (NOVOLOG) ASPART 100 UNITS/ML 10ML VIAL SQ SCH ×3 (06:03→17:42)
[2023-01-29] MEDS: INSULIN SLIDING SCALE (NOVOLOG) 1 VIAL SQ SCH ×4 (06:04→21:07)
[2023-01-29 07:28] LABS: HEMOGLOBIN 7.8 GM/dL (11.7-16.9); MCHC 29.9 g/dl (32.0-35.9); MEAN CELL VOLUME 60.3 fl (80-96); MEAN PLT VOLUME 8.7 fl (7.5-11.1); PLATELET COUNT 396 10^3/uL (134-434); RBC 4.32 M/mm3 (4.00-5.60); RDW 24.1 % (11.9-15.9); WHITE BLOOD COUNT 9.4 K/mm3 (4.0-10.0)
[2023-01-29 07:34] LABS: INR 2.52 (0.83-1.09)
[2023-01-29 07:52] LABS: POTASSIUM 4.3 mmol/L (3.5-5.1)
[2023-01-29 08:05] LABS: ALBUMIN 3.4 g/dl (3.4-5.0); BLOOD UREA NITROGEN 12.8 mg/dL (7-18); CALCIUM 9.1 mg/dL (8.5-10.1)
[2023-01-29 08:09] LABS: CREATININE 1.4 mg/dL (0.55-1.3)
[2023-01-29 08:10] LABS: BILIRUBIN,TOTAL 0.6 mg/dL (0.2-1)
[2023-01-29] MEDS: TAMSULOSIN HCL 0.4 MG CAP PO SCH (08:38)
[2023-01-29] MEDS: CITALOPRAM HYDROBROMIDE 20 MG TABLET PO SCH (10:49)
[2023-01-29] MEDS: LOSARTAN POTASSIUM 50 MG TABLET PO SCH (10:49)
[2023-01-29] MEDS: NIFEdipine E.R. 30 MG TABLET PO SCH (10:49)
[2023-01-29] MEDS: METOPROLOL TARTRATE 25 MG TABLET (FP) PO SCH (10:50)
[2023-01-29] MEDS: OXcarbazepine 150 MG TABLET (UD) PO SCH ×2 (10:50→21:09)
[2023-01-29] MEDS ORDERED: INSULIN (NOVOLOG) ASPART 100 UNITS/ML 10ML VIAL ONE (12:37)
[2023-01-29] MEDS: WARFARIN NA 3 MG TABLET PO SCH (17:45)
[2023-01-29] MEDS: INSULIN (LEVEMIR) 100 UNITS/ML UNITS SQ SCH (21:08)
[2023-01-29] MEDS: ATORVASTATIN CA 20 MG TABLET (FP) PO SCH (21:08)
[2023-01-30] MEDS: INSULIN SLIDING SCALE (NOVOLOG) 1 VIAL SQ SCH ×4 (06:17→21:56)
[2023-01-30] MEDS: INSULIN (NOVOLOG) ASPART 100 UNITS/ML 10ML VIAL SQ SCH ×3 (06:18→16:44)
[2023-01-30] MEDS: TAMSULOSIN HCL 0.4 MG CAP PO SCH (07:54)
[2023-01-30] MEDS ORDERED: METOPROLOL TARTRATE 25 MG TABLET (FP) PO SCH (10:00)
[2023-01-30] MEDS: CITALOPRAM HYDROBROMIDE 20 MG TABLET PO SCH (10:37)
[2023-01-30] MEDS: NIFEdipine E.R. 30 MG TABLET PO SCH (10:37)
[2023-01-30] MEDS: LOSARTAN POTASSIUM 50 MG TABLET PO SCH (10:37)
[2023-01-30] MEDS: OXcarbazepine 150 MG TABLET (UD) PO SCH ×2 (10:43→21:52)
[2023-01-30 11:25] LABS: INR 2.33 (0.83-1.09); PROTHROMBIN TIME (PATIENT) 26.8 SEC (9.7-13.0)
[2023-01-30] MEDS: metoPROLOL SUCCINATE 25 MG TAB.SR.24H (FP) PO SCH (11:51)
[2023-01-30] MEDS: WARFARIN NA 3 MG TABLET PO SCH (17:07)
[2023-01-30] MEDS: ATORVASTATIN CA 20 MG TABLET (FP) PO SCH (21:52)
[2023-01-30] MEDS: INSULIN (LEVEMIR) 100 UNITS/ML UNITS SQ SCH (21:55)
[2023-01-31] MEDS: INSULIN SLIDING SCALE (NOVOLOG) 1 VIAL SQ SCH ×4 (06:06→22:01)
[2023-01-31] MEDS: INSULIN (NOVOLOG) ASPART 100 UNITS/ML 10ML VIAL SQ SCH ×3 (06:07→18:16)
[2023-01-31 09:20] LABS: BASO % 1.7 % (0-2.0); EOS % 2.1 % (0-4.5); HEMATOCRIT 30.1 % (35.4-49); HEMOGLOBIN 8.7 GM/dL (11.7-16.9); LYMPH % 14.3 % (8-40); MEAN CELL VOLUME 63.2 fl (80-96); MEAN PLT VOLUME 8.8 fl (7.5-11.1); MONO % 7.6 % (3.8-10.2); NEUT % 74.3 % (42.8-82.8); PLATELET COUNT 464 10^3/uL (134-434); RBC 4.77 M/mm3 (4.00-5.60); RDW 23.4 % (11.9-15.9); WHITE BLOOD COUNT 10.4 K/mm3 (4.0-10.0)
[2023-01-31 09:24] LABS: MCH 18.3 pg (25.7-33.7)
[2023-01-31 09:25] LABS: INR 2.82 (0.83-1.09); PROTHROMBIN TIME (PATIENT) 32.4 SEC (9.7-13.0)
[2023-01-31 09:44] LABS: POTASSIUM 4.7 mmol/L (3.5-5.1)
[2023-01-31 09:57] LABS: ALBUMIN 3.8 g/dl (3.4-5.0); CALCIUM 9.2 mg/dL (8.5-10.1)
[2023-01-31 09:59] LABS: CREATININE 1.7 mg/dL (0.55-1.3)
[2023-01-31 10:00] LABS: BILIRUBIN,TOTAL 0.4 mg/dL (0.2-1); TOT PROT 7.7 g/dl (6.4-8.2)
[2023-01-31] MEDS: CITALOPRAM HYDROBROMIDE 20 MG TABLET PO SCH (11:13)
[2023-01-31] MEDS: LOSARTAN POTASSIUM 50 MG TABLET PO SCH (11:13)
[2023-01-31] MEDS: TAMSULOSIN HCL 0.4 MG CAP PO SCH (11:13)
[2023-01-31] MEDS: NIFEdipine E.R. 30 MG TABLET PO SCH (11:13)
[2023-01-31] MEDS: OXcarbazepine 150 MG TABLET (UD) PO SCH ×2 (11:13→22:01)
[2023-01-31] MEDS: metoPROLOL SUCCINATE 25 MG TAB.SR.24H (FP) PO SCH (11:21)
[2023-01-31] MEDS: LACTATED RINGERS SOLUTION 1,000 ML/1,000 ML INFUS.BAG IV SCH (12:56)
[2023-01-31] MEDS ORDERED: IRON SUCROSE INJECTION 100 MG in SODIUM CHLORIDE 95 ML IVPB ONE (16:00)
[2023-01-31] MEDS: WARFARIN NA 3 MG TABLET PO SCH (17:15)
[2023-01-31] MEDS: TERIFLUNOMIDE PO SCH (18:16)
[2023-01-31] MEDS ORDERED: INSULIN (NOVOLOG) ASPART 100 UNITS/ML 10ML VIAL ONE (21:17)
[2023-01-31] MEDS: ATORVASTATIN CA 20 MG TABLET (FP) PO SCH (22:00)
[2023-01-31] MEDS: INSULIN (LEVEMIR) 100 UNITS/ML UNITS SQ SCH (22:01)
[2023-02-01] MEDS: LACTATED RINGERS SOLUTION 1,000 ML/1,000 ML INFUS.BAG IV SCH ×2 (02:39→12:14)
[2023-02-01] MEDS: INSULIN SLIDING SCALE (NOVOLOG) 1 VIAL SQ SCH ×4 (06:02→22:14)
[2023-02-01] MEDS: INSULIN (NOVOLOG) ASPART 100 UNITS/ML 10ML VIAL SQ SCH ×3 (06:02→17:16)
[2023-02-01] MEDS: TAMSULOSIN HCL 0.4 MG CAP PO SCH (08:22)
[2023-02-01 09:21] LABS: HEMATOCRIT 26.6 % (35.4-49); HEMOGLOBIN 7.9 GM/dL (11.7-16.9); MCHC 29.6 g/dl (32.0-35.9); MEAN PLT VOLUME 8.2 fl (7.5-11.1); PLATELET COUNT 388 10^3/uL (134-434); RBC 4.22 M/mm3 (4.00-5.60); RDW 25.1 % (11.9-15.9); WHITE BLOOD COUNT 8.7 K/mm3 (4.0-10.0)
[2023-02-01 09:23] LABS: MCH 18.7 pg (25.7-33.7)
[2023-02-01 09:31] LABS: INR 3.38 (0.83-1.09); PROTHROMBIN TIME (PATIENT) 38.7 SEC (9.7-13.0)
[2023-02-01] MEDS: metoPROLOL SUCCINATE 25 MG TAB.SR.24H (FP) PO SCH (09:33)
[2023-02-01] MEDS: CITALOPRAM HYDROBROMIDE 20 MG TABLET PO SCH (09:33)
[2023-02-01] MEDS: OXcarbazepine 150 MG TABLET (UD) PO SCH ×2 (09:33→22:13)
[2023-02-01] MEDS: NIFEdipine E.R. 30 MG TABLET PO SCH (09:33)
[2023-02-01] MEDS: LOSARTAN POTASSIUM 50 MG TABLET PO SCH (09:33)
[2023-02-01] MEDS: TERIFLUNOMIDE PO SCH (09:34)
[2023-02-01 09:41] LABS: POTASSIUM 4.1 mmol/L (3.5-5.1)
[2023-02-01 09:51] LABS: CALCIUM 8.1 mg/dL (8.5-10.1)
[2023-02-01 09:52] LABS: ALBUMIN 3.2 g/dl (3.4-5.0); BLOOD UREA NITROGEN 16.5 mg/dL (7-18)
[2023-02-01 09:55] LABS: CREATININE 1.5 mg/dL (0.55-1.3)
[2023-02-01 09:56] LABS: BILIRUBIN,TOTAL 0.4 mg/dL (0.2-1); TOT PROT 6.5 g/dl (6.4-8.2)
[2023-02-01] MEDS ORDERED: WARFARIN NA 2.5 MG TABLET PO SCH (11:30)
[2023-02-01] MEDS ORDERED: PHYTONADIONE 10 MG/1 ML AMP IVPB ONE (15:56)
[2023-02-01] MEDS ORDERED: INSULIN (NOVOLOG) ASPART 100 UNITS/ML 10ML VIAL ONE (21:08)
[2023-02-01] MEDS: ATORVASTATIN CA 20 MG TABLET (FP) PO SCH (22:13)
[2023-02-01] MEDS: INSULIN (LEVEMIR) 100 UNITS/ML UNITS SQ SCH (22:13)
[2023-02-02] MEDS: INSULIN (NOVOLOG) ASPART 100 UNITS/ML 10ML VIAL SQ SCH ×3 (06:27→16:15)
[2023-02-02] MEDS: INSULIN SLIDING SCALE (NOVOLOG) 1 VIAL SQ SCH ×4 (06:27→22:25)
[2023-02-02 09:05] LABS: INR 1.38 (0.83-1.09)
[2023-02-02 09:23] LABS: BASO % 2.2 % (0-2.0); EOS % 2.6 % (0-4.5); HEMATOCRIT 28.5 % (35.4-49); HEMOGLOBIN 8.6 GM/dL (11.7-16.9); LYMPH % 17.9 % (8-40); MCHC 30.1 g/dl (32.0-35.9); MEAN CELL VOLUME 63.1 fl (80-96); MEAN PLT VOLUME 8.1 fl (7.5-11.1); MONO % 8.1 % (3.8-10.2); NEUT % 69.2 % (42.8-82.8); PLATELET COUNT 384 10^3/uL (134-434); RBC 4.53 M/mm3 (4.00-5.60); RDW 25.7 % (11.9-15.9); WHITE BLOOD COUNT 8.2 K/mm3 (4.0-10.0)
[2023-02-02] MEDS: CITALOPRAM HYDROBROMIDE 20 MG TABLET PO SCH (09:29)
[2023-02-02] MEDS: NIFEdipine E.R. 30 MG TABLET PO SCH (09:29)
[2023-02-02] MEDS: metoPROLOL SUCCINATE 25 MG TAB.SR.24H (FP) PO SCH (09:29)
[2023-02-02] MEDS: TAMSULOSIN HCL 0.4 MG CAP PO SCH (09:29)
[2023-02-02] MEDS: TERIFLUNOMIDE PO SCH (09:29)
[2023-02-02] MEDS: PANTOPRAZOLE 40 MG TABLET PO SCH (09:29)
[2023-02-02] MEDS: LOSARTAN POTASSIUM 50 MG TABLET PO SCH (09:30)
[2023-02-02] MEDS: OXcarbazepine 150 MG TABLET (UD) PO SCH ×2 (09:30→22:01)
[2023-02-02 09:43] LABS: POTASSIUM 4.4 mmol/L (3.5-5.1)
[2023-02-02 09:45] LABS: CALCIUM 8.8 mg/dL (8.5-10.1)
[2023-02-02 09:46] LABS: ALBUMIN 3.6 g/dl (3.4-5.0); BLOOD UREA NITROGEN 14.6 mg/dL (7-18)
[2023-02-02 09:49] LABS: CREATININE 1.4 mg/dL (0.55-1.3)
[2023-02-02 09:51] LABS: BILIRUBIN,TOTAL 0.3 mg/dL (0.2-1); TOT PROT 7.3 g/dl (6.4-8.2)
[2023-02-02 12:38] LABS: ANISOCYTOSIS 2+; MACROCYTOSIS 0
[2023-02-02] MEDS: ENOXAPARIN NA (PORCINE) 100 MG/1 ML DISP.SYRIN SQ SCH ×2 (12:59→22:01)
[2023-02-02] MEDS ORDERED: INSULIN (NOVOLOG) ASPART 100 UNITS/ML 10ML VIAL ONE (21:57)
[2023-02-02] MEDS: ATORVASTATIN CA 20 MG TABLET (FP) PO SCH (22:00)
[2023-02-02] MEDS: INSULIN (LEVEMIR) 100 UNITS/ML UNITS SQ SCH (22:01)
[2023-02-03] MEDS: INSULIN (NOVOLOG) ASPART 100 UNITS/ML 10ML VIAL SQ SCH ×3 (06:26→18:01)
[2023-02-03] MEDS: INSULIN SLIDING SCALE (NOVOLOG) 1 VIAL SQ SCH ×4 (06:27→22:44)
[2023-02-03] MEDS ORDERED: HEPARIN NA (PORCINE) 5,000 UNITS/ML 1ML VIAL IVPUSH PRN ×2 (09:46)
[2023-02-03] MEDS ORDERED: HEPARIN INFUSION - 25,000 UNITS/500 ML INFUS.BAG IVPB SCH (10:00)
[2023-02-03] MEDS: NIFEdipine E.R. 30 MG TABLET PO SCH (10:33)
[2023-02-03] MEDS: metoPROLOL SUCCINATE 25 MG TAB.SR.24H (FP) PO SCH (10:33)
[2023-02-03] MEDS: TERIFLUNOMIDE PO SCH ×2 (10:34→10:35)
[2023-02-03] MEDS: CITALOPRAM HYDROBROMIDE 20 MG TABLET PO SCH (10:34)
[2023-02-03] MEDS: LOSARTAN POTASSIUM 50 MG TABLET PO SCH (10:34)
[2023-02-03] MEDS: PANTOPRAZOLE 40 MG TABLET PO SCH (10:34)
[2023-02-03] MEDS: TAMSULOSIN HCL 0.4 MG CAP PO SCH (10:34)
[2023-02-03 13:27] LABS: BASO % 2.2 % (0-2.0); EOS % 2.7 % (0-4.5); HEMATOCRIT 27.7 % (35.4-49); MEAN CELL VOLUME 65.3 fl (80-96); MEAN PLT VOLUME 8.3 fl (7.5-11.1); MONO % 10.7 % (3.8-10.2); NEUT % 59.4 % (42.8-82.8); PLATELET COUNT 350 10^3/uL (134-434); RBC 4.24 M/mm3 (4.00-5.60); WHITE BLOOD COUNT 7.8 K/mm3 (4.0-10.0)
[2023-02-03 13:35] LABS: MCH 18.9 pg (25.7-33.7)
[2023-02-03] MEDS: OXcarbazepine 150 MG TABLET (UD) PO SCH ×2 (13:44→23:06)
[2023-02-03 14:19] LABS: POTASSIUM 3.8 mmol/L (3.5-5.1)
[2023-02-03 14:22] LABS: ALBUMIN 3.3 g/dl (3.4-5.0); BLOOD UREA NITROGEN 16.1 mg/dL (7-18); CALCIUM 8.2 mg/dL (8.5-10.1)
[2023-02-03 14:25] LABS: CREATININE 1.4 mg/dL (0.55-1.3)
[2023-02-03 14:27] LABS: TOT PROT 6.8 g/dl (6.4-8.2)
[2023-02-03 14:30] LABS: BILIRUBIN,TOTAL 0.2 mg/dL (0.2-1)
[2023-02-03] MEDS ORDERED: BISACODYL 5 MG TABLET.DR (FP) PO ONE (16:00)
[2023-02-03] MEDS: PEG 3350/NA SULF BICARB CL/KCL 4000 ML SOLN.RECON PO ONE (21:00)
[2023-02-03] MEDS: ATORVASTATIN CA 20 MG TABLET (FP) PO SCH (22:42)
[2023-02-03] MEDS: INSULIN (LEVEMIR) 100 UNITS/ML UNITS SQ SCH (22:43)
[2023-02-04] MEDS: PEG 3350/NA SULF BICARB CL/KCL 4000 ML SOLN.RECON PO ONE (03:17)
[2023-02-04] MEDS: INSULIN SLIDING SCALE (NOVOLOG) 1 VIAL SQ SCH ×4 (06:04→22:39)
[2023-02-04] MEDS: INSULIN (NOVOLOG) ASPART 100 UNITS/ML 10ML VIAL SQ SCH ×3 (06:06→17:10)
[2023-02-04 08:40] LABS: BASO % 1.4 % (0-2.0); EOS % 1.7 % (0-4.5); HEMATOCRIT 29.6 % (35.4-49); HEMOGLOBIN 8.7 GM/dL (11.7-16.9); LYMPH % 15.1 % (8-40); MCHC 29.4 g/dl (32.0-35.9); MEAN CELL VOLUME 65.8 fl (80-96); MEAN PLT VOLUME 8.5 fl (7.5-11.1); MONO % 6.4 % (3.8-10.2); NEUT % 75.4 % (42.8-82.8); PLATELET COUNT 362 10^3/uL (134-434); RBC 4.51 M/mm3 (4.00-5.60); RDW 31.9 % (11.9-15.9); WHITE BLOOD COUNT 8.9 K/mm3 (4.0-10.0)
[2023-02-04 08:41] LABS: MCH 19.4 pg (25.7-33.7)
[2023-02-04] MEDS: TAMSULOSIN HCL 0.4 MG CAP PO SCH (08:42)
[2023-02-04 08:57] LABS: POTASSIUM 4.6 mmol/L (3.5-5.1)
[2023-02-04 08:58] LABS: CALCIUM 8.4 mg/dL (8.5-10.1)
[2023-02-04 08:59] LABS: ALBUMIN 3.4 g/dl (3.4-5.0); BLOOD UREA NITROGEN 13.2 mg/dL (7-18)
[2023-02-04 09:02] LABS: CREATININE 1.4 mg/dL (0.55-1.3)
[2023-02-04 09:03] LABS: BILIRUBIN,TOTAL 0.3 mg/dL (0.2-1)
[2023-02-04 09:04] LABS: TOT PROT 7.1 g/dl (6.4-8.2)
[2023-02-04 09:12] LABS: INR 1.18 (0.83-1.09); PROTHROMBIN TIME (PATIENT) 13.7 SEC (9.7-13.0)
[2023-02-04] MEDS ORDERED: ETOMIDATE 20 MG/10 ML VIAL IVPUSH ONE (10:38)
[2023-02-04] MEDS: TERIFLUNOMIDE PO SCH (12:16)
[2023-02-04] MEDS: LOSARTAN POTASSIUM 50 MG TABLET PO SCH (12:17)
[2023-02-04] MEDS: metoPROLOL SUCCINATE 25 MG TAB.SR.24H (FP) PO SCH (12:17)
[2023-02-04] MEDS: NIFEdipine E.R. 30 MG TABLET PO SCH (12:17)
[2023-02-04] MEDS: PANTOPRAZOLE 40 MG TABLET PO SCH (12:17)
[2023-02-04] MEDS: OXcarbazepine 150 MG TABLET (UD) PO SCH ×2 (12:17→22:39)
[2023-02-04] MEDS: CITALOPRAM HYDROBROMIDE 20 MG TABLET PO SCH (12:17)
[2023-02-04] MEDS ORDERED: HEPARIN NA (PORCINE) 5,000 UNITS/ML 1ML VIAL IVPUSH PRN ×2 (14:00)
[2023-02-04] MEDS: HEPARIN - 25,000 UNIT in SODIUM CHLORIDE 495 ML IV SCH (14:59)
[2023-02-04] MEDS: INSULIN (LEVEMIR) 100 UNITS/ML UNITS SQ SCH (22:39)
[2023-02-04] MEDS: ATORVASTATIN CA 20 MG TABLET (FP) PO SCH (22:39)
[2023-02-05] MEDS: INSULIN (NOVOLOG) ASPART 100 UNITS/ML 10ML VIAL SQ SCH ×3 (06:30→16:21)
[2023-02-05] MEDS: INSULIN SLIDING SCALE (NOVOLOG) 1 VIAL SQ SCH ×4 (06:30→22:23)
[2023-02-05] MEDS: TAMSULOSIN HCL 0.4 MG CAP PO SCH (08:39)
[2023-02-05 08:51] LABS: POTASSIUM 4.2 mmol/L (3.5-5.1)
[2023-02-05 08:53] LABS: CALCIUM 8.6 mg/dL (8.5-10.1)
[2023-02-05 08:54] LABS: ALBUMIN 3.6 g/dl (3.4-5.0); BLOOD UREA NITROGEN 14.5 mg/dL (7-18)
[2023-02-05 08:57] LABS: CREATININE 1.6 mg/dL (0.55-1.3)
[2023-02-05 08:59] LABS: BILIRUBIN,TOTAL 0.4 mg/dL (0.2-1); TOT PROT 7.2 g/dl (6.4-8.2)
[2023-02-05 09:06] LABS: BASO % 0.3 % (0-2.0); EOS % 2.3 % (0-4.5); HEMATOCRIT 29.8 % (35.4-49); HEMOGLOBIN 8.8 GM/dL (11.7-16.9); MCHC 29.5 g/dl (32.0-35.9); MEAN CELL VOLUME 66.3 fl (80-96); MEAN PLT VOLUME 8.7 fl (7.5-11.1); NEUT % 71.4 % (42.8-82.8); PLATELET COUNT 334 10^3/uL (134-434); RDW 33.8 % (11.9-15.9); WHITE BLOOD COUNT 7.4 K/mm3 (4.0-10.0)
[2023-02-05 09:07] LABS: MCH 19.5 pg (25.7-33.7)
[2023-02-05] MEDS: TERIFLUNOMIDE PO SCH (09:34)
[2023-02-05] MEDS: OXcarbazepine 150 MG TABLET (UD) PO SCH ×2 (09:36→22:23)
[2023-02-05] MEDS: LOSARTAN POTASSIUM 50 MG TABLET PO SCH (09:36)
[2023-02-05] MEDS: NIFEdipine E.R. 30 MG TABLET PO SCH (09:37)
[2023-02-05] MEDS: metoPROLOL SUCCINATE 25 MG TAB.SR.24H (FP) PO SCH (09:37)
[2023-02-05] MEDS: CITALOPRAM HYDROBROMIDE 20 MG TABLET PO SCH (09:37)
[2023-02-05 11:36] LABS: INR 1.17 (0.83-1.09); PROTHROMBIN TIME (PATIENT) 13.6 SEC (9.7-13.0)
[2023-02-05 11:39] LABS: ACTIVATED PTT 53.8 SECONDS (25.2-36.5)
[2023-02-05] MEDS: HEPARIN - 25,000 UNIT in SODIUM CHLORIDE 495 ML IV SCH (17:53)
[2023-02-05] MEDS ORDERED: INSULIN (NOVOLOG) ASPART 100 UNITS/ML 10ML VIAL ONE (22:04)
[2023-02-05] MEDS: ATORVASTATIN CA 20 MG TABLET (FP) PO SCH (22:23)
[2023-02-05] MEDS: INSULIN (LEVEMIR) 100 UNITS/ML UNITS SQ SCH (22:23)
[2023-02-06] MEDS: INSULIN (NOVOLOG) ASPART 100 UNITS/ML 10ML VIAL SQ SCH ×3 (06:36→17:07)
[2023-02-06] MEDS: INSULIN SLIDING SCALE (NOVOLOG) 1 VIAL SQ SCH ×4 (06:37→22:40)
[2023-02-06] MEDS: NIFEdipine E.R. 30 MG TABLET PO SCH (09:26)
[2023-02-06] MEDS: CITALOPRAM HYDROBROMIDE 20 MG TABLET PO SCH (09:26)
[2023-02-06] MEDS: LOSARTAN POTASSIUM 50 MG TABLET PO SCH (09:26)
[2023-02-06] MEDS: TAMSULOSIN HCL 0.4 MG CAP PO SCH (09:26)
[2023-02-06] MEDS: OXcarbazepine 150 MG TABLET (UD) PO SCH ×2 (09:27→22:40)
[2023-02-06] MEDS: metoPROLOL SUCCINATE 25 MG TAB.SR.24H (FP) PO SCH (09:28)
[2023-02-06 09:34] LABS: EOS % 3.2 % (0-4.5); HEMATOCRIT 29.5 % (35.4-49); HEMOGLOBIN 8.5 GM/dL (11.7-16.9); LYMPH % 22.3 % (8-40); MCH 19.2 pg (25.7-33.7); MCHC 28.7 g/dl (32.0-35.9); MEAN CELL VOLUME 66.8 fl (80-96); MEAN PLT VOLUME 8.5 fl (7.5-11.1); MONO % 6.9 % (3.8-10.2); NEUT % 64.6 % (42.8-82.8); PLATELET COUNT 320 10^3/uL (134-434); RBC 4.42 M/mm3 (4.00-5.60); RDW 33.2 % (11.9-15.9); WHITE BLOOD COUNT 6.2 K/mm3 (4.0-10.0)
[2023-02-06 09:36] LABS: INR 1.15 (0.83-1.09); PROTHROMBIN TIME (PATIENT) 13.3 SEC (9.7-13.0)
[2023-02-06 09:38] LABS: ACTIVATED PTT 46.3 SECONDS (25.2-36.5)
[2023-02-06 10:00] LABS: POTASSIUM 4.1 mmol/L (3.5-5.1)
[2023-02-06 10:06] LABS: CALCIUM 8.6 mg/dL (8.5-10.1)
[2023-02-06 10:08] LABS: ALBUMIN 3.3 g/dl (3.4-5.0); BLOOD UREA NITROGEN 14.7 mg/dL (7-18)
[2023-02-06 10:11] LABS: CREATININE 1.6 mg/dL (0.55-1.3)
[2023-02-06 10:12] LABS: BILIRUBIN,TOTAL 0.3 mg/dL (0.2-1)
[2023-02-06 10:25] LABS: ANISOCYTOSIS 3+; MACROCYTOSIS 1+
[2023-02-06] MEDS: TERIFLUNOMIDE PO SCH (11:04)
[2023-02-06] MEDS: HEPARIN - 25,000 UNIT in SODIUM CHLORIDE 495 ML IV SCH ×2 (14:33→19:58)
[2023-02-06] MEDS ORDERED: BISACODYL 5 MG TABLET.DR (FP) PO ONE (16:00)
[2023-02-06] MEDS ORDERED: POLYETHYLENE GLYCOL 3350 255 GM BTL PO ONE (17:00)
[2023-02-06] MEDS ORDERED: INSULIN (NOVOLOG) ASPART 100 UNITS/ML 10ML VIAL ONE (22:03)
[2023-02-06] MEDS: INSULIN (LEVEMIR) 100 UNITS/ML UNITS SQ SCH (22:38)
[2023-02-06] MEDS: ATORVASTATIN CA 20 MG TABLET (FP) PO SCH (22:39)
[2023-02-07] MEDS: INSULIN SLIDING SCALE (NOVOLOG) 1 VIAL SQ SCH ×4 (06:22→23:29)
[2023-02-07] MEDS: INSULIN (NOVOLOG) ASPART 100 UNITS/ML 10ML VIAL SQ SCH ×3 (06:22→16:47)
[2023-02-07] MEDS: TAMSULOSIN HCL 0.4 MG CAP PO SCH (08:47)
[2023-02-07] MEDS ORDERED: POLYETHYLENE GLYCOL 3350 255 GM BTL PO ONE (10:00)
[2023-02-07] MEDS: NIFEdipine E.R. 30 MG TABLET PO SCH (10:02)
[2023-02-07] MEDS: metoPROLOL SUCCINATE 25 MG TAB.SR.24H (FP) PO SCH (10:02)
[2023-02-07] MEDS: CITALOPRAM HYDROBROMIDE 20 MG TABLET PO SCH (10:03)
[2023-02-07] MEDS: TERIFLUNOMIDE PO SCH (10:03)
[2023-02-07] MEDS: LOSARTAN POTASSIUM 50 MG TABLET PO SCH (10:03)
[2023-02-07] MEDS: OXcarbazepine 150 MG TABLET (UD) PO SCH ×2 (10:48→21:20)
[2023-02-07 12:33] LABS: BASO % 0.5 % (0-2.0); EOS % 2.2 % (0-4.5); HEMATOCRIT 32.3 % (35.4-49); HEMOGLOBIN 9.5 GM/dL (11.7-16.9); LYMPH % 26.7 % (8-40); MCHC 29.3 g/dl (32.0-35.9); MEAN CELL VOLUME 66.3 fl (80-96); MONO % 8.2 % (3.8-10.2); NEUT % 62.4 % (42.8-82.8); PLATELET COUNT 331 10^3/uL (134-434); RBC 4.87 M/mm3 (4.00-5.60); RDW 33.5 % (11.9-15.9); WHITE BLOOD COUNT 7.5 K/mm3 (4.0-10.0)
[2023-02-07 12:42] LABS: MCH 19.4 pg (25.7-33.7)
[2023-02-07 12:43] LABS: INR 1.15 (0.83-1.09); PROTHROMBIN TIME (PATIENT) 13.3 SEC (9.7-13.0)
[2023-02-07 12:56] LABS: BLOOD UREA NITROGEN 13.5 mg/dL (7-18); CALCIUM 8.9 mg/dL (8.5-10.1)
[2023-02-07 12:57] LABS: ALBUMIN 3.8 g/dl (3.4-5.0)
[2023-02-07 13:00] LABS: CREATININE 1.7 mg/dL (0.55-1.3)
[2023-02-07 13:02] LABS: BILIRUBIN,TOTAL 0.3 mg/dL (0.2-1); TOT PROT 7.7 g/dl (6.4-8.2)
[2023-02-07] MEDS ORDERED: ONDANSETRON 4 MG/2 ML VIAL IVPB ONE (13:45)
[2023-02-07] MEDS ORDERED: INSULIN (NOVOLOG) ASPART 100 UNITS/ML 10ML VIAL ONE (16:14)
[2023-02-07] MEDS: HEPARIN - 25,000 UNIT in SODIUM CHLORIDE 495 ML IV SCH (17:09)
[2023-02-07 17:26] LABS: ACTIVATED PTT 37.7 SECONDS (25.2-36.5)
[2023-02-07] MEDS ORDERED: BISACODYL 5 MG TABLET.DR (FP) PO ONE (20:00)
[2023-02-07] MEDS: ATORVASTATIN CA 20 MG TABLET (FP) PO SCH (21:19)
[2023-02-07] MEDS: INSULIN (LEVEMIR) 100 UNITS/ML UNITS SQ SCH (23:30)
[2023-02-08] MEDS: INSULIN (NOVOLOG) ASPART 100 UNITS/ML 10ML VIAL SQ SCH ×3 (07:18→17:23)
[2023-02-08] MEDS: INSULIN SLIDING SCALE (NOVOLOG) 1 VIAL SQ SCH ×4 (07:18→21:33)
[2023-02-08 08:15] LABS: INR 1.21 (0.83-1.09)
[2023-02-08] MEDS ORDERED: INSULIN (LEVEMIR) 100 UNITS/ML UNITS SQ ONE (08:25)
[2023-02-08 08:41] LABS: POTASSIUM 4.5 mmol/L (3.5-5.1)
[2023-02-08 08:42] LABS: CALCIUM 8.5 mg/dL (8.5-10.1)
[2023-02-08] MEDS: TAMSULOSIN HCL 0.4 MG CAP PO SCH (08:42)
[2023-02-08 08:45] LABS: ALBUMIN 3.3 g/dl (3.4-5.0); BLOOD UREA NITROGEN 16.6 mg/dL (7-18)
[2023-02-08 08:47] LABS: CREATININE 1.7 mg/dL (0.55-1.3)
[2023-02-08 08:48] LABS: TOT PROT 6.8 g/dl (6.4-8.2)
[2023-02-08 08:49] LABS: BILIRUBIN,TOTAL 0.4 mg/dL (0.2-1)
[2023-02-08] MEDS: metoPROLOL SUCCINATE 25 MG TAB.SR.24H (FP) PO SCH (10:16)
[2023-02-08] MEDS: LOSARTAN POTASSIUM 50 MG TABLET PO SCH (10:16)
[2023-02-08] MEDS: TERIFLUNOMIDE PO SCH (10:16)
[2023-02-08] MEDS: NIFEdipine E.R. 30 MG TABLET PO SCH (10:17)
[2023-02-08] MEDS: CITALOPRAM HYDROBROMIDE 20 MG TABLET PO SCH (10:17)
[2023-02-08] MEDS: OXcarbazepine 150 MG TABLET (UD) PO SCH ×2 (10:17→21:35)
[2023-02-08] MEDS ORDERED: INSULIN (NOVOLOG) ASPART 100 UNITS/ML 10ML VIAL ONE (21:00)
[2023-02-08] MEDS: ATORVASTATIN CA 20 MG TABLET (FP) PO SCH (21:31)
[2023-02-08] MEDS: INSULIN (LEVEMIR) 100 UNITS/ML UNITS SQ SCH (21:31)
[2023-02-09] MEDS: INSULIN (NOVOLOG) ASPART 100 UNITS/ML 10ML VIAL SQ SCH ×3 (06:15→16:57)
[2023-02-09] MEDS: INSULIN SLIDING SCALE (NOVOLOG) 1 VIAL SQ SCH ×4 (06:15→22:38)
[2023-02-09] MEDS ORDERED: HEPARIN NA (PORCINE) 5,000 UNITS/ML 1ML VIAL IVPUSH PRN (07:35)
[2023-02-09] MEDS ORDERED: INSULIN (LEVEMIR) 100 UNITS/ML UNITS SQ ONE (08:32)
[2023-02-09] MEDS ORDERED: INSULIN (NOVOLOG) ASPART 100 UNITS/ML 10ML VIAL ONE ×2 (08:32→21:24)
[2023-02-09] MEDS: TERIFLUNOMIDE PO SCH (09:42)
[2023-02-09] MEDS: OXcarbazepine 150 MG TABLET (UD) PO SCH ×2 (09:42→22:38)
[2023-02-09] MEDS: CITALOPRAM HYDROBROMIDE 20 MG TABLET PO SCH (09:43)
[2023-02-09] MEDS: LOSARTAN POTASSIUM 50 MG TABLET PO SCH (09:43)
[2023-02-09] MEDS: NIFEdipine E.R. 30 MG TABLET PO SCH (09:43)
[2023-02-09] MEDS: metoPROLOL SUCCINATE 25 MG TAB.SR.24H (FP) PO SCH (09:43)
[2023-02-09] MEDS: HEPARIN - 25,000 UNIT in SODIUM CHLORIDE 495 ML IV SCH (09:43)
[2023-02-09] MEDS: TAMSULOSIN HCL 0.4 MG CAP PO SCH (09:43)
[2023-02-09 09:57] LABS: HEMATOCRIT 31.9 % (35.4-49); HEMOGLOBIN 9.7 GM/dL (11.7-16.9); MCHC 30.3 g/dl (32.0-35.9); MEAN CELL VOLUME 66.1 fl (80-96); PLATELET COUNT 333 10^3/uL (134-434); RBC 4.84 M/mm3 (4.00-5.60); WHITE BLOOD COUNT 6.6 K/mm3 (4.0-10.0)
[2023-02-09 10:18] LABS: POTASSIUM 4.3 mmol/L (3.5-5.1)
[2023-02-09 10:24] LABS: ALBUMIN 3.7 g/dl (3.4-5.0); BLOOD UREA NITROGEN 18.6 mg/dL (7-18); CALCIUM 9.3 mg/dL (8.5-10.1)
[2023-02-09 10:27] LABS: CREATININE 1.7 mg/dL (0.55-1.3)
[2023-02-09 10:29] LABS: BILIRUBIN,TOTAL 0.4 mg/dL (0.2-1); TOT PROT 7.7 g/dl (6.4-8.2)
[2023-02-09] MEDS: WARFARIN NA 3 MG TABLET PO SCH (17:19)
[2023-02-09] MEDS: HEPARIN NA (PORCINE) 5,000 UNITS/ML 1ML VIAL IVPUSH PRN (21:35)
[2023-02-09] MEDS: INSULIN (LEVEMIR) 100 UNITS/ML UNITS SQ SCH (22:38)
[2023-02-09] MEDS: ATORVASTATIN CA 20 MG TABLET (FP) PO SCH (22:38)
[2023-02-10] MEDS: HEPARIN - 25,000 UNIT in SODIUM CHLORIDE 495 ML IV SCH ×2 (03:37→10:55)
[2023-02-10] MEDS: HEPARIN NA (PORCINE) 5,000 UNITS/ML 1ML VIAL IVPUSH PRN (05:20)
[2023-02-10] MEDS: INSULIN SLIDING SCALE (NOVOLOG) 1 VIAL SQ SCH ×4 (06:20→21:37)
[2023-02-10 08:13] LABS: HEMATOCRIT 28.9 % (35.4-49); HEMOGLOBIN 8.5 GM/dL (11.7-16.9); MCHC 29.3 g/dl (32.0-35.9); MEAN CELL VOLUME 67.4 fl (80-96); MEAN PLT VOLUME 9.1 fl (7.5-11.1); PLATELET COUNT 290 10^3/uL (134-434); RBC 4.28 M/mm3 (4.00-5.60); RDW 33.1 % (11.9-15.9)
[2023-02-10 08:20] LABS: ACTIVATED PTT 64.1 SECONDS (25.2-36.5)
[2023-02-10 08:21] LABS: MCH 19.8 pg (25.7-33.7)
[2023-02-10 09:31] LABS: INR 1.17 (0.83-1.09); PROTHROMBIN TIME (PATIENT) 13.6 SEC (9.7-13.0)
[2023-02-10] MEDS: CITALOPRAM HYDROBROMIDE 20 MG TABLET PO SCH (09:55)
[2023-02-10] MEDS: LOSARTAN POTASSIUM 50 MG TABLET PO SCH (09:55)
[2023-02-10] MEDS: OXcarbazepine 150 MG TABLET (UD) PO SCH ×2 (09:55→21:38)
[2023-02-10] MEDS: NIFEdipine E.R. 30 MG TABLET PO SCH (09:55)
[2023-02-10] MEDS: TAMSULOSIN HCL 0.4 MG CAP PO SCH (09:55)
[2023-02-10] MEDS: metoPROLOL SUCCINATE 25 MG TAB.SR.24H (FP) PO SCH (09:55)
[2023-02-10] MEDS: TERIFLUNOMIDE PO SCH (09:58)
[2023-02-10] MEDS: WARFARIN NA 3 MG TABLET PO SCH (18:15)
[2023-02-10] MEDS ORDERED: INSULIN (NOVOLOG) ASPART 100 UNITS/ML 10ML VIAL ONE (21:13)
[2023-02-10] MEDS: INSULIN (LEVEMIR) 100 UNITS/ML UNITS SQ SCH (21:38)
[2023-02-10] MEDS: ATORVASTATIN CA 20 MG TABLET (FP) PO SCH (21:38)
[2023-02-11] MEDS: INSULIN SLIDING SCALE (NOVOLOG) 1 VIAL SQ SCH ×4 (06:07→22:17)
[2023-02-11] MEDS: TAMSULOSIN HCL 0.4 MG CAP PO SCH (10:36)
[2023-02-11] MEDS: LOSARTAN POTASSIUM 50 MG TABLET PO SCH (10:36)
[2023-02-11] MEDS: metoPROLOL SUCCINATE 25 MG TAB.SR.24H (FP) PO SCH (10:36)
[2023-02-11] MEDS: TERIFLUNOMIDE PO SCH (10:36)
[2023-02-11] MEDS: OXcarbazepine 150 MG TABLET (UD) PO SCH ×2 (10:36→22:20)
[2023-02-11] MEDS: NIFEdipine E.R. 30 MG TABLET PO SCH (10:36)
[2023-02-11] MEDS: CITALOPRAM HYDROBROMIDE 20 MG TABLET PO SCH (10:36)
[2023-02-11] MEDS: HEPARIN - 25,000 UNIT in SODIUM CHLORIDE 495 ML IV SCH (10:37)
[2023-02-11 11:52] LABS: HEMOGLOBIN 8.5 GM/dL (11.7-16.9); MCH 20.1 pg (25.7-33.7); MCHC 30.2 g/dl (32.0-35.9); MEAN CELL VOLUME 66.5 fl (80-96); MEAN PLT VOLUME 8.9 fl (7.5-11.1); PLATELET COUNT 252 10^3/uL (134-434); RBC 4.22 M/mm3 (4.00-5.60); RDW 32.9 % (11.9-15.9); WHITE BLOOD COUNT 6.3 K/mm3 (4.0-10.0)
[2023-02-11 12:01] LABS: INR 1.75 (0.83-1.09); PROTHROMBIN TIME (PATIENT) 20.2 SEC (9.7-13.0)
[2023-02-11 12:04] LABS: ACTIVATED PTT 58.9 SECONDS (25.2-36.5)
[2023-02-11] MEDS: WARFARIN NA 5 MG TABLET PO SCH (17:24)
[2023-02-11] MEDS: INSULIN (LEVEMIR) 100 UNITS/ML UNITS SQ SCH (22:18)
[2023-02-11] MEDS: ATORVASTATIN CA 20 MG TABLET (FP) PO SCH (22:18)
[2023-02-12] MEDS: INSULIN SLIDING SCALE (NOVOLOG) 1 VIAL SQ SCH ×4 (06:32→21:47)
[2023-02-12 08:06] LABS: HEMATOCRIT 28.5 % (35.4-49); HEMOGLOBIN 8.7 GM/dL (11.7-16.9); MCH 20.4 pg (25.7-33.7); MCHC 30.4 g/dl (32.0-35.9); MEAN CELL VOLUME 67.1 fl (80-96); PLATELET COUNT 315 10^3/uL (134-434); RBC 4.24 M/mm3 (4.00-5.60); RDW 32.9 % (11.9-15.9); WHITE BLOOD COUNT 5.4 K/mm3 (4.0-10.0)
[2023-02-12 08:17] LABS: INR 1.63 (0.83-1.09); PROTHROMBIN TIME (PATIENT) 18.8 SEC (9.7-13.0)
[2023-02-12 08:19] LABS: ACTIVATED PTT 31.2 SECONDS (25.2-36.5)
[2023-02-12] MEDS: TAMSULOSIN HCL 0.4 MG CAP PO SCH (08:39)
[2023-02-12] MEDS ORDERED: HEPARIN NA (PORCINE) 5,000 UNITS/ML 1ML VIAL IVPUSH PRN ×2 (09:08)
[2023-02-12] MEDS: OXcarbazepine 150 MG TABLET (UD) PO SCH ×2 (09:58→21:46)
[2023-02-12] MEDS: LOSARTAN POTASSIUM 50 MG TABLET PO SCH (09:58)
[2023-02-12] MEDS: metoPROLOL SUCCINATE 25 MG TAB.SR.24H (FP) PO SCH (09:58)
[2023-02-12] MEDS: NIFEdipine E.R. 30 MG TABLET PO SCH (09:58)
[2023-02-12] MEDS: TERIFLUNOMIDE PO SCH (09:58)
[2023-02-12] MEDS: CITALOPRAM HYDROBROMIDE 20 MG TABLET PO SCH (09:58)
[2023-02-12] MEDS: HEPARIN - 25,000 UNIT in SODIUM CHLORIDE 495 ML IV SCH (11:02)
[2023-02-12] MEDS: WARFARIN NA 5 MG TABLET PO SCH (17:50)
[2023-02-12] MEDS ORDERED: WARFARIN NA 10 MG TABLET PO ONE (18:00)
[2023-02-12] MEDS ORDERED: INSULIN (NOVOLOG) ASPART 100 UNITS/ML 10ML VIAL ONE (21:13)
[2023-02-12] MEDS: INSULIN (LEVEMIR) 100 UNITS/ML UNITS SQ SCH (21:45)
[2023-02-12] MEDS: ATORVASTATIN CA 20 MG TABLET (FP) PO SCH (21:45)
[2023-02-13] MEDS: INSULIN SLIDING SCALE (NOVOLOG) 1 VIAL SQ SCH ×4 (06:30→22:06)
[2023-02-13 06:45] LABS: HEMATOCRIT 31.1 % (35.4-49); MCH 19.7 pg (25.7-33.7); MCHC 29.1 g/dl (32.0-35.9); MEAN CELL VOLUME 67.8 fl (80-96); MEAN PLT VOLUME 8.7 fl (7.5-11.1); PLATELET COUNT 359 10^3/uL (134-434); RBC 4.59 M/mm3 (4.00-5.60); RDW 32.9 % (11.9-15.9); WHITE BLOOD COUNT 5.3 K/mm3 (4.0-10.0)
[2023-02-13 06:53] LABS: INR 3.13 (0.83-1.09); PROTHROMBIN TIME (PATIENT) 35.9 SEC (9.7-13.0)
[2023-02-13] MEDS ORDERED: INSULIN (NOVOLOG) ASPART 100 UNITS/ML 10ML VIAL ONE ×2 (07:00→21:16)
[2023-02-13] MEDS ORDERED: INSULIN (LEVEMIR) 100 UNITS/ML UNITS SQ ONE (07:00)
[2023-02-13] MEDS: TERIFLUNOMIDE PO SCH (09:05)
[2023-02-13] MEDS: LOSARTAN POTASSIUM 50 MG TABLET PO SCH (09:05)
[2023-02-13] MEDS: metoPROLOL SUCCINATE 25 MG TAB.SR.24H (FP) PO SCH (09:05)
[2023-02-13] MEDS: NIFEdipine E.R. 30 MG TABLET PO SCH (09:05)
[2023-02-13] MEDS: CITALOPRAM HYDROBROMIDE 20 MG TABLET PO SCH (09:05)
[2023-02-13] MEDS: OXcarbazepine 150 MG TABLET (UD) PO SCH ×2 (09:05→22:06)
[2023-02-13] MEDS: TAMSULOSIN HCL 0.4 MG CAP PO SCH (09:05)
[2023-02-13] MEDS: HEPARIN - 25,000 UNIT in SODIUM CHLORIDE 495 ML IV SCH ×2 (09:06→13:12)
[2023-02-13] MEDS: WARFARIN NA 5 MG TABLET PO SCH (18:16)
[2023-02-13] MEDS: INSULIN (LEVEMIR) 100 UNITS/ML UNITS SQ SCH (22:05)
[2023-02-13] MEDS: ATORVASTATIN CA 20 MG TABLET (FP) PO SCH (22:06)
[2023-02-14] MEDS: INSULIN SLIDING SCALE (NOVOLOG) 1 VIAL SQ SCH ×4 (06:07→21:19)
[2023-02-14] MEDS ORDERED: INSULIN (LEVEMIR) 100 UNITS/ML UNITS SQ ONE (07:54)
[2023-02-14] MEDS ORDERED: INSULIN (NOVOLOG) ASPART 100 UNITS/ML 10ML VIAL ONE ×2 (07:54→20:51)
[2023-02-14 09:06] LABS: BASO % 1.9 % (0-2.0); EOS % 3.1 % (0-4.5); HEMATOCRIT 29.4 % (35.4-49); HEMOGLOBIN 8.6 GM/dL (11.7-16.9); LYMPH % 24.3 % (8-40); MCHC 29.4 g/dl (32.0-35.9); MEAN CELL VOLUME 67.1 fl (80-96); MEAN PLT VOLUME 8.7 fl (7.5-11.1); MONO % 11.2 % (3.8-10.2); NEUT % 59.5 % (42.8-82.8); PLATELET COUNT 329 10^3/uL (134-434); RBC 4.38 M/mm3 (4.00-5.60); RDW 32.3 % (11.9-15.9); WHITE BLOOD COUNT 5.5 K/mm3 (4.0-10.0)
[2023-02-14 09:07] LABS: INR 3.84 (0.83-1.09); PROTHROMBIN TIME (PATIENT) 43.9 SEC (9.7-13.0)
[2023-02-14 09:13] LABS: MCH 19.8 pg (25.7-33.7)
[2023-02-14 09:23] LABS: POTASSIUM 4.1 mmol/L (3.5-5.1)
[2023-02-14 09:31] LABS: CALCIUM 8.7 mg/dL (8.5-10.1)
[2023-02-14 09:32] LABS: ALBUMIN 3.4 g/dl (3.4-5.0)
[2023-02-14 09:35] LABS: CREATININE 1.2 mg/dL (0.55-1.3)
[2023-02-14 09:36] LABS: BILIRUBIN,TOTAL 0.4 mg/dL (0.2-1); TOT PROT 6.8 g/dl (6.4-8.2)
[2023-02-14] MEDS: metoPROLOL SUCCINATE 25 MG TAB.SR.24H (FP) PO SCH (09:39)
[2023-02-14] MEDS: TAMSULOSIN HCL 0.4 MG CAP PO SCH (09:39)
[2023-02-14] MEDS: NIFEdipine E.R. 30 MG TABLET PO SCH (09:39)
[2023-02-14] MEDS: CITALOPRAM HYDROBROMIDE 20 MG TABLET PO SCH (09:40)
[2023-02-14] MEDS: TERIFLUNOMIDE PO SCH (09:40)
[2023-02-14] MEDS: LOSARTAN POTASSIUM 50 MG TABLET PO SCH (09:40)
[2023-02-14] MEDS: OXcarbazepine 150 MG TABLET (UD) PO SCH ×2 (09:40→21:19)
[2023-02-14 10:01] LABS: ANISOCYTOSIS 3+; MACROCYTOSIS 0
[2023-02-14] MEDS: WARFARIN NA 5 MG TABLET PO SCH (19:26)
[2023-02-14] MEDS: INSULIN (LEVEMIR) 100 UNITS/ML UNITS SQ SCH (21:18)
[2023-02-14] MEDS: ATORVASTATIN CA 20 MG TABLET (FP) PO SCH (21:19)
[2023-02-15] MEDS: INSULIN SLIDING SCALE (NOVOLOG) 1 VIAL SQ SCH ×2 (06:01→11:32)
[2023-02-15] MEDS ORDERED: NIFEdipine E.R. 30 MG TABLET PO ONE (06:02)
[2023-02-15] MEDS ORDERED: LOSARTAN POTASSIUM 50 MG TABLET PO ONE (06:02)
[2023-02-15] MEDS ORDERED: INSULIN (NOVOLOG) ASPART 100 UNITS/ML 10ML VIAL ONE (07:57)
[2023-02-15] MEDS ORDERED: INSULIN (LEVEMIR) 100 UNITS/ML UNITS SQ ONE (07:57)
[2023-02-15 08:31] VITALS: BP 133/84; PULSE 84; RESP 18; TEMP 99
[2023-02-15] MEDS: TAMSULOSIN HCL 0.4 MG CAP PO SCH (08:57)
[2023-02-15] MEDS: LOSARTAN POTASSIUM 50 MG TABLET PO SCH (09:37)
[2023-02-15] MEDS: NIFEdipine E.R. 30 MG TABLET PO SCH (09:37)
[2023-02-15] MEDS: CITALOPRAM HYDROBROMIDE 20 MG TABLET PO SCH (09:37)
[2023-02-15] MEDS: metoPROLOL SUCCINATE 25 MG TAB.SR.24H (FP) PO SCH (09:37)
[2023-02-15] MEDS: OXcarbazepine 150 MG TABLET (UD) PO SCH (09:38)
[2023-02-15] MEDS: TERIFLUNOMIDE PO SCH (10:42)
== END 2023-02-15 13:20 | DRG 661 ==
LOC: JER 12:35 → JERBED 15:19 → OBSVTOIN 17:05 → J7W 23:31
PROVIDERS: ADMIT Internal Medicine; ATTEND Family Medicine
PROC: 30233N1 Transfusion of Nonautologous Red Blood Cells into Peripheral Vein, Percutaneous Approach (ICD-10-PCS; 2023-01-27)
PROC: 0DB68ZX Excision of Stomach, Via Natural or Artificial Opening Endoscopic, Diagnostic (ICD-10-PCS; principal; 2023-02-04 09:30)
PROC: 0DBN8ZX Excision of Sigmoid Colon, Via Natural or Artificial Opening Endoscopic, Diagnostic (ICD-10-PCS; 2023-02-08)
DX: D68.32 Hemorrhagic disorder due to extrinsic circulating anticoagulants (principal); D50.9 Iron deficiency anemia, unspecified; G35 Multiple sclerosis; I12.9 Hypertensive chronic kidney disease with stage 1 through stage 4 chronic kidney disease, or unspecified chronic kidney disease; N18.9 Chronic kidney disease, unspecified; E11.9 Type 2 diabetes mellitus without complications; K29.70 Gastritis, unspecified, without bleeding; Z95.2 Presence of prosthetic heart valve; K63.5 Polyp of colon; K57.90 Diverticulosis of intestine, part unspecified, without perforation or abscess without bleeding; K44.9 Diaphragmatic hernia without obstruction or gangrene; I25.10 Atherosclerotic heart disease of native coronary artery without angina pectoris
CPT/HCPCS: 36415; 36430; 80048; 80053; 80061; 80307; 81003; 82105; 82272; 82570; 82607; 82728; 82746; 82962; 82977; 83036; 83540; 83550; 84156; 84436; 84443; 85025; 85027; 85045; 85610; 85730; 86850; 86870; 86900; 86901; 86902; 86922; 87522; 87635; 88305-TC; 93005; 93010; 97116-GP; 97162-GP; 99285-25; G0378; J1644; J1756; P9058

== ENCOUNTER 2024-02-11 14:43 | Emergency (ER) | payer OTHER ==
[2024-02-11 14:55] VITALS: BP 145/92; PULSE 96; RESP 18; TEMP 98.2; BMI 29.0
[2024-02-11] MEDS ORDERED: INSULIN REGULAR HUMAN 100 UNITS/ML *VIAL ONE (17:18)
[2024-02-11] MEDS: INSULIN REGULAR HUMAN 100 UNITS/ML *VIAL SQ ONE ×3 (17:21→19:42)
== END 2024-02-11 19:50 | disposition left against medical advice (07) ==
LOC: JER 14:43
PROC: 3E013VG Introduction of Insulin into Subcutaneous Tissue, Percutaneous Approach (ICD-10-PCS; principal; 2024-02-11)
DX: E11.65 Type 2 diabetes mellitus with hyperglycemia (principal); Z79.4 Long term (current) use of insulin
CPT/HCPCS: 71046-TC-FY; 82962; 99284-25